=== PATIENT | male | born 1950 | race Caucasian/White ===

== ENCOUNTER → 2016-04-25 | Outpatient (CLI) | payer MEDICARE, OTHER | LOC: MW.CHGS 08:00 | PROVIDERS: ATTEND Surgery | DX: Z01.818 Encounter for other preprocedural examination (principal); K42.9 Umbilical hernia without obstruction or gangrene ==

== ENCOUNTER 2016-05-03 08:27 | Inpatient (IN) | payer MEDICARE, OTHER ==
[~2016-05-03 08:27] MED LIST: Lactated Ringers 1,000 ML IV SCH; Sodium Chloride 0.9% 10 ML Syringe FLUSH PRN; Sodium Chloride 0.9% 2.5 ML Syringe FLUSH PRN; ceFAZolin 2 GM in Premix Bag 1 BAG IV ONE
[2016-05-03] MEDS ORDERED: Propofol 200 MG/20 ML SDV ONE ×2 (09:52→13:41)
[2016-05-03] MEDS ORDERED: Rocuronium 10 MG/ML 10 ML Syringe ONE (09:52)
[2016-05-03] MEDS ORDERED: Lidocaine 2% 5 ML SDV ONE (09:52)
[2016-05-03] MEDS ORDERED: Midazolam 1 MG/ML 2 ML SDV ONE (09:53)
[2016-05-03] MEDS ORDERED: fentaNYL 100 MCG/2 ML SDV ONE ×2 (09:53→11:50)
[2016-05-03] MEDS ORDERED: Ondansetron 4 MG/2 ML SDV ONE (09:53)
--- NOTE | 2016-05-03 10:15 | PCM.PREANE ---
Preanesthetic Assessment - Anesthesia/Transfusion/Family Hx Anesthesia History: Prior Anesthesia Without Reaction Transfusion History: No Prior Transfusion(s) - Physical Assessment NPO Status Date: 05/02/16 NPO Status Time: 21:00 O2 Sat by Pulse Oximetry: 90 Respiratory Rate: 16 Vital Signs: Last Vital Signs Temp 36.2 C 05/03/16 09:59 Pulse 85 05/03/16 09:59 Resp 16 05/03/16 09:59 BP 158/75 H 05/03/16 09:59 Pulse Ox 90 L 05/03/16 09:59 Height: 1.75 m Weight: 102.058 kg - Allergies Allergies/Adverse Reactions: Allergies Allergy/AdvReac Type Severity Reaction Status Date / Time No Known Allergies Allergy Unverified 03/12/14 08:04 PreAnesthesia Questionnaire HEENT History: Reports: Other (see below) Other HEENT History: wears glasses Cardiovascular History: Reports: High cholesterol, Hypertension Respiratory History: Reports: COPD Other Respiratory History: uses oxygen as needed at bedtime, hard to climb stairs, can walk 2-3 blocks Gastrointestinal History: Reports: Other (see below) Other Gastrointestinal History: occasional heartburn Endocrine/Metabolic History: Reports: Obesity/BMI 30+ Hematologic History: Reports: Other (see below) Other Hematologic History: thrombo cytopenia - Past Surgical History Head Surgeries/Procedures: Reports: None HEENT Surgical History: Reports: Other (see below) Other HEENT Surgeries/Procedures: hx throat surgery (stripping of vocal cord lesions) GI Surgical History: Reports: Colonoscopy (2-3 months ago), Hernia, inguinal ( right inguinal hernia) - SUBSTANCE USE Smoking Status *Q: Former Smoker (quit '06) Tobacco Use Within Last Twelve Months: No Recreational Drug Use History: No - HOME MEDS Home Medications: Home Meds Albuterol Sulfate [Proair Hfa] 2 puff INH ASDIRECTED PRN 04/06/16 [History] Budesonide/Formoterol [Symbicort 160-4.5 MCG] 2 puff INH BID 04/06/16 [History] Lisinopril/Hydrochlorothiazide [Lisinopril-Hctz 20-25 mg Tab] 1 tab PO DAILY [History] Naproxen Sodium [Aleve] 1 tab PO TID PRN 04/06/16 [History] Tiotropium [Spiriva HandiHaler] 1 inhalation INH DAILY 04/06/16 [History] - CURRENT (IN HOUSE) MEDS Current Meds: Current Medications Lactated Ringer's (Ringers, Lactated) 1,000 mls @ 125 mls/hr IV ASDIRECTED PHAM Last Admin: 05/03/16 10:04 Dose: 125 mls/hr Lactated Ringer's (Ringers, Lactated) 1,000 mls @ 125 mls/hr IV ASDIRECTED PHAM Sodium Chloride (Saline Flush) 10 ml FLUSH ASDIRECTED PRN PRN Reason: Keep Vein Open Sodium Chloride (Saline Flush) 2.5 ml FLUSH ASDIRECTED PRN PRN Reason: Keep Vein Open Sodium Chloride (Saline Flush) 10 ml FLUSH ASDIRECTED PRN PRN Reason: Keep Vein Open Sodium Chloride (Saline Flush) 2.5 ml FLUSH ASDIRECTED PRN PRN Reason: Keep Vein Open Discontinued Medications Fentanyl (Sublimaze) Confirm Administered Dose 300 mcg .ROUTE .STK-MED ONE Stop: 05/03/16 09:54 Cefazolin Sodium/Dextrose 2 gm (/ Premix) 50 mls @ 100 mls/hr IV ONETIME ONE Stop: 04/17/16 12:19 Cefazolin Sodium/Dextrose 2 gm (/ Premix) 50 mls @ 100 mls/hr IV ONETIME ONE Stop: 05/02/16 11:21 Lidocaine (Xylocaine-Mpf 2%) Confirm Administered Dose 5 ml .ROUTE .STK-MED ONE Stop: 05/03/16 09:53 Midazolam HCl (Versed 1 Mg/Ml) Confirm Administered Dose 2 mg .ROUTE .STK-MED ONE Stop: 05/03/16 09:54 Ondansetron HCl (Zofran) Confirm Administered Dose 4 mg .ROUTE .STK-MED ONE Stop: 05/03/16 09:54 Propofol (Diprivan 20 Ml) Confirm Administered Dose 200 mg .ROUTE .STK-MED ONE Stop: 05/03/16 09:53 Rocuronium [place] (Zemuron) Confirm Administered Dose 100 mg .ROUTE .STK-MED ONE Stop: 05/03/16 09:53 Preanesthetic Assessment - ANESTHESIA/TRANSFUSION/FAMILY HX Anesthesia/Transfusion History: Prior Anesthesia Type of Anesthesia Reaction: Denies: Allergy, Anesthesia Awareness, Excessive Somnolence, Excessive Nausea/Vomiting, Excessive Itching, Excessive Shivering, Malignant Hyperthermia, Malignant Hyperthermia, Family History, Pseudocholinesterase Deficiency, Pseudocholinesterase Deficiency, Family History of, Urinary Retention, Unknown, Other (see below) Family History of Anesthesia Reaction: No Other Intubation History Comment: no known problems - REVIEW OF SYSTEMS Constitutional: Reports: no symptoms INSERT CUTTER: Reports: no symptoms Respiratory: Reports: no symptoms Cardiovascular: Reports: no symptoms GI: Reports: no symptoms Other: Reports: None - PHYSICAL ASSESSMENT O2 Sat by Pulse Oximetry: 90 RR: 16 Vital Signs: Last Vital Signs Temp 36.2 C 05/03/16 09:59 Pulse 85 05/03/16 09:59 Resp 16 05/03/16 09:59 BP 158/75 H 05/03/16 09:59 Pulse Ox 90 L 05/03/16 09:59 Height: 1.75 m Weight: 102.058 kg NPO Status Date: 05/02/16 NPO Status Time: 21:00 ASA Class: 3 Mental Status: Alert & Oriented x3 Airway Class: Mallampati = 2 Dentition: Reports: Normal Dentition (loose tooth bottom front (right)) Thyro-Mental Finger Breadths: 3 Mouth Opening Finger Breadths: 3 ROM/Head Extension: Full Respiratory Status: diminished breath sounds Cardiovascular Status: regular rate & rhythm, normal S1, S2, no murmur, blood pressure WNL - ALLERGIES Allergies/Adverse Reactions: Allergies Allergy/AdvReac Type Severity Reaction Status Date / Time No Known Allergies Allergy Unverified 03/12/14 08:04 - BLOOD Blood Available: No - ANESTHESIA PLAN Preop Beta Dillon: No Anesthesia Type Planned: General Anesthesia - ACKNOWLEDGEMENTS Pt an Appropriate Candidate for the Planned Anesthesia: Yes Alternatives and Risks of Anesthesia Discussed w Pt/Guardian: Yes Pt/Guardian Understands and Agrees with Anesthesia Plan: Yes
[2016-05-03] MEDS ORDERED: Bupivacaine 0.5% 10 ML SDV ONE (10:16)
[2016-05-03] MEDS ORDERED: ceFAZolin 1 GM Vial ONE ×2 (10:17→10:42)
[2016-05-03] MEDS ORDERED: Sodium Chloride 0.9% 20 ML ONE (10:42)
[2016-05-03] MEDS ORDERED: ePHEDrine 50 MG/ML SDV ONE (10:50)
[2016-05-03] MEDS ORDERED: Phenylephrine/Normal Saline 100 MCG/ML 10 ML Syringe ONE (10:53)
[2016-05-03] MEDS ORDERED: Succinylcholine/Normal Saline 200 MG/10 ML Syringe IV ONE (11:03)
[2016-05-03] MEDS ORDERED: Neostigmine Methylsulfate 1 MG/ML 5 ML Syringe IV ONE (11:57)
[2016-05-03] MEDS ORDERED: HYDROmorphone 2 MG/ML Syringe ONE (12:18)
--- NOTE | 2016-05-03 14:05 | PCM.OPNOTE ---
- General Post-Op/Procedure Note Date of Surgery/Procedure: 05/03/16 Operative Procedure(s): Umbilical hernia repair with mesh, ventral hernia repair with mesh, primary ventral hernia repair Findings: 5 x 5 cm umbilical hernia containing bowel and omentum, 2.5 cm ventral midline hernia containing bowel, 1 cm ventral hernia containing pre-peritoneal fat Pre Op Diagnosis: Umbilical hernia Post-Op Diagnosis: umbilical hernia, ventral hernia x 2 Anesthesia Technique: General ET tube Primary Surgeon: Lala Springer Pathology: hernia sac Fluid Replacement, Intraop: 2,900 Output, Urine Amount: 400 EBL in mLs: 100 Condition: Good
[2016-05-03] MEDS ORDERED: Metoprolol Tartrate 5 MG/5 ML SDV ONE (14:08)
[2016-05-03] MEDS ORDERED: diphenhydrAMINE 50 MG/ML SDV IVPUSH PRN (14:09)
[2016-05-03] MEDS ORDERED: Polyethylene Glycol 3350 Powder 17 GM Packet PO PRN (14:09)
[2016-05-03] MEDS ORDERED: Acetaminophen 325 MG Tab PO PRN (14:09)
[2016-05-03] MEDS ORDERED: HYDROmorphone/Normal Saline 6 MG/30 ML PCA Vial IV PRN (14:18)
[2016-05-03] MEDS ORDERED: Tiotropium Inhaler 18 MCG Inhalation Powder Cap Kit of 5 INH ONE (14:24)
[2016-05-03] MEDS ORDERED: Albuterol 0.083% 2.5 MG/3 ML Neb Soln NEB PRN (14:25)
[2016-05-03] MEDS ORDERED: fentaNYL 100 MCG/2 ML SDV IVPUSH PRN (14:40)
--- NOTE | 2016-05-03 15:05 | PCM.POSTAN ---
POST ANESTHESIA ASSESSMENT - MENTAL STATUS Mental Status: alert, oriented - RESPIRATORY Respiratory Status: respiratory rate WNL, airway patent, O2 saturation stable - CARDIOVASCULAR CV Status: pulse rate WNL, blood pressure stable - GASTROINTESTINAL GI Status: no symptoms - PAIN Pain Score: 0 - POST OP HYDRATION Hydration Status: adequate & stable
[2016-05-03 15:08] LABS: CHLORIDE,CL 107 mmol/L (98-110); SODIUM,NA 142 mmol/L (136-146)
[2016-05-03] MEDS: Lactated Ringers 1,000 ML IV SCH ×2 (15:41→23:25)
[2016-05-03] MEDS: HYDROmorphone/Normal Saline 6 MG/30 ML PCA Vial IV PRN (15:44)
--- NOTE | 2016-05-03 16:21 | PCM.SURGPN ---
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 Tired. Bloody drainage on lower part of dressings. ) - Review of Systems General: Reports: Other (dizzy) HEENT: Reports: no symptoms Pulmonary: Reports: no symptoms Cardiovascular: Reports: No Symptoms Gastrointestinal: Reports: Abdominal pain Musculoskeletal: Reports: no symptoms - Patient Data Vitals - most recent: Last Vital Signs Temp 36.6 C 05/03/16 14:12 Pulse 93 05/03/16 15:00 Resp 11 L 05/03/16 15:00 BP 147/86 H 05/03/16 15:00 Pulse Ox 92 L 05/03/16 15:00 Weight - most recent: 102.058 kg I&O - last 24 hours: Intake & Output 05/03/16 05/03/16 05/03/16 06:59 14:59 22:59 Intake Total 2900 3100 Output Total 800 650 Balance 2100 2450 Lab Results last 24 hrs: Laboratory Results - last 24 hr 05/03/16 05/03/16 Range/Units 14:36 14:36 WBC 13.79 H (4.0-11.0) K/uL RBC 4.56 (4.50-5.90) M/uL Hgb 14.1 (13.0-17.0) g/dL Hct 43.8 (38.0-50.0) % MCV 96.1 (80.0-98.0) fL MCH 30.9 (27.0-32.0) pg MCHC 32.2 (31.0-37.0) g/dL RDW Std Deviation 50.3 (28.0-62.0) fl RDW Coeff of [place] 14 (11.0-15.0) % Plt Count 186 (150-400) K/uL MPV 11.80 (7.40-12.00) fL Neut % (Auto) 86.4 H (48.0-80.0) % Lymph % (Auto) 6.3 L (16.0-40.0) % [place] % (Auto) 6.1 (0.0-15.0) % Eos % (Auto) 1.0 (0.0-7.0) % Baso % (Auto) 0.2 (0.0-1.5) % Neut # 11.9 H (1.4-5.7) K/uL Lymph # 0.9 (0.6-2.4) K/uL [place] # 0.8 (0.0-0.8) K/uL Eos # 0.1 (0.0-0.7) K/uL Baso # 0.0 (0.0-0.1) K/uL Nucleated RBC % 0.0 /100WBC Nucleated RBCs # 0 K/uL Sodium 142 (136-146) mmol/L Potassium 4.3 (3.5-5.1) mmol/L Chloride 107 (98-110) mmol/L Carbon Dioxide 28 (21-31) mmol/L BUN 14 (6.0-23.0) mg/dL Creatinine 1.2 (0.6-1.5) mg/dL Est Cr Clr Drug Dosing 60.55 mL/min Estimated GFR (MDRD) > 60.0 ml/min Glucose 130 H (60-110) mg/dL Calcium 8.5 L (8.8-10.8) mg/dL Med Orders - Current: Current Medications Acetaminophen (Tylenol) 650 mg PO Q6H PRN PRN Reason: Pain (mild 1-3) Albuterol (Proventil Neb Soln) 2.5 mg NEB Q4HRRT PRN PRN Reason: Shortness of Breath Budesonide (Pulmicort) 0.5 mg NEB BIDRT PHAM Cyclobenzaprine HCl (Flexeril) 5 mg PO TID PHAM Diphenhydramine HCl (Benadryl) 25 mg IVPUSH Q4H PRN PRN Reason: Itching Fentanyl (Sublimaze) 50 mcg IVPUSH Q5M PRN PRN Reason: Pain (severe 7-10) Stop: 05/04/16 14:40 Hydromorphone HCl (Dilaudid Truck Service Manager 6 Mg In Ns 30 Ml) 6 mg IV ASDIRECTED PRN; Protocol PRN Reason: Abdominal Pain Last Admin: 05/03/16 15:44 Dose: 6 mg Lactated Ringer's (Ringers, Lactated) 1,000 mls @ 125 mls/hr IV ASDIRECTED PHAM Last Admin: 05/03/16 15:41 Dose: 125 mls/hr Ondansetron HCl (Zofran) 4 mg IVPUSH Q6H PRN PRN Reason: Nausea/Vomiting Polyethylene Glycol (Miralax) 17 gm PO DAILY PRN PRN Reason: Constipation Sodium Chloride (Saline Flush) 10 ml FLUSH ASDIRECTED PRN PRN Reason: Keep Vein Open Sodium Chloride (Saline Flush) 2.5 ml FLUSH ASDIRECTED PRN PRN Reason: Keep Vein Open Sodium Chloride (Saline Flush) 10 ml FLUSH ASDIRECTED PRN PRN Reason: Keep Vein Open Sodium Chloride (Saline Flush) 2.5 ml FLUSH ASDIRECTED PRN PRN Reason: Keep Vein Open Discontinued Medications Bupivacaine HCl (Sensorcaine-Mpf 0.5%) Confirm Administered Dose 30 ml .ROUTE .STK-MED ONE Stop: 05/03/16 10:17 Cefazolin Sodium (Ancef) Confirm Administered Dose 1 gm .ROUTE .STK-MED ONE Stop: 05/03/16 10:18 Cefazolin Sodium (Ancef) Confirm Administered Dose 2 gm .ROUTE .STK-MED ONE Stop: 05/03/16 10:43 Ephedrine Sulfate (Ephedrine Sulfate) Confirm Administered Dose 50 mg .ROUTE .STK-MED ONE Stop: 05/03/16 10:51 Fentanyl (Sublimaze) Confirm Administered Dose 300 mcg .ROUTE .STK-MED ONE Stop: 05/03/16 09:54 Fentanyl (Sublimaze) Confirm Administered Dose 100 mcg .ROUTE .STK-MED ONE Stop: 05/03/16 11:51 Hydromorphone HCl (Dilaudid) Confirm Administered Dose 2 mg .ROUTE .STK-MED ONE Stop: 05/03/16 12:19 Hydromorphone HCl (Dilaudid Truck Service Manager 6 Mg In Ns 30 Ml) 6 mg IV ASDIRECTED PRN; Protocol PRN Reason: Abdominal Pain Lactated Ringer's (Ringers, Lactated) 1,000 mls @ 125 mls/hr IV ASDIRECTED PHAM Last Admin: 05/03/16 10:04 Dose: 125 mls/hr Cefazolin Sodium/Dextrose 2 gm (/ Premix) 50 mls @ 100 mls/hr IV ONETIME ONE Stop: 04/17/16 12:19 Cefazolin Sodium/Dextrose 2 gm (/ Premix) 50 mls @ 100 mls/hr IV ONETIME ONE Stop: 05/02/16 11:21 Last Admin: 05/03/16 15:28 Dose: Not Given Lactated Ringer's (Ringers, Lactated) 1,000 mls @ 125 mls/hr IV ASDIRECTED PHAM Sodium Chloride (Normal Saline) Confirm Administered Dose 20 mls @ as directed .ROUTE .STK-MED ONE Stop: 05/03/16 10:43 Lidocaine (Xylocaine-Mpf 2%) Confirm Administered Dose 5 ml .ROUTE .STK-MED ONE Stop: 05/03/16 09:53 Metoprolol Tartrate (Lopressor) Confirm Administered Dose 5 mg .ROUTE .STK-MED ONE Stop: 05/03/16 14:09 Midazolam HCl (Versed 1 Mg/Ml) Confirm Administered Dose 2 mg .ROUTE .STK-MED ONE Stop: 05/03/16 09:54 Ondansetron HCl (Zofran) Confirm Administered Dose 4 mg .ROUTE .STK-MED ONE Stop: 05/03/16 09:54 Phenylephrine HCl (Phenylephrine In Ns 100 Mcg/Ml) Confirm Administered Dose 1 mg .ROUTE .STK-MED ONE Stop: 05/03/16 10:54 Propofol (Diprivan 20 Ml) Confirm Administered Dose 200 mg .ROUTE .STK-MED ONE Stop: 05/03/16 09:53 Propofol (Diprivan 20 Ml) Confirm Administered Dose 200 mg .ROUTE .STK-MED ONE Stop: 05/03/16 13:42 Rocuronium [place] (Zemuron) Confirm Administered Dose 100 mg .ROUTE .STK-MED ONE Stop: 05/03/16 09:53 Tiotropium [place] (Spiriva Handihaler) 18 mcg INH ONETIME ONE Stop: 05/03/16 14:25 Last Admin: 05/03/16 15:53 Dose: 1 cap - Exam Wound/Incisions: drainage (bloody draiange at lower aspect of incision ) Quality Assessment: supplemental oxygen General: alert, oriented, cooperative, no acute distress Lungs: Normal respiratory effort Cardiovascular: Regular Rate Abdomen: soft, other (Abdomen tender along midline incision, soft, patient has distended round belly pre-operatively. Slightly more distended from that. ) - Problem List Review Problem List Initiated/Reviewed/Updated: Yes - My Orders Last 24 Hours: Active Orders 24 hr Category Date Time Status Patient Status [ADT] Routine ADT 05/03/16 14:20 Active Antiembolic Devices [RC] .Routine Care 05/03/16 14:13 Active Bradycardia-Neuroaxis [employer] [RC] ROUTINE Care 05/03/16 14:40 Active CPAP Adult [RT BiPAP/CPAP] [RC] ASDIRECTED Care 05/03/16 14:17 Active Cardiac Monitoring [RC] . DIRECTED Care 05/03/16 14:09 Active Communication Order [RC] ROUTINE Care 05/03/16 15:45 Active Hypertension-Neuroaxis [employer] [RC] ROUTINE Care 05/03/16 14:40 Active Hypotension-Neuroaxis [employer] [RC] ROUTINE Care 05/03/16 14:40 Active Intake and Output [RC] Q4HR Care 05/03/16 14:11 Active Notify Provider Vital Signs [RC] PRN Care 05/03/16 14:11 Active Oxygen Therapy [RC] PRN Care 05/03/16 14:09 Active Pulse Oximetry [RC] CONTINUOUS Care 05/03/16 14:11 Active RT Aerosol Therapy [RC] ASDIRECTED Care 05/03/16 14:25 Active RT Incentive Spirometry [RC] ASDIRECTED Care 05/03/16 14:09 Active RT Post Treatment Assessment [RC] Click To Edit Care 05/03/16 14:24 Active RT Pre-Treatment Assessment [RC] Click To Edit Care 05/03/16 14:24 Active Up ad Maura [RC] ASDIRECTED Care 05/03/16 14:09 Active Up to Chair [RC] BID Care 05/03/16 14:10 Active VTE/DVT Education [RC] PER UNIT ROUTINE Care 05/03/16 14:13 Active Vital Signs [RC] PER UNIT ROUTINE Care 05/03/16 14:09 Active PT Evaluation and Treatment [CONS] Routine Cons 05/03/16 14:09 Active Respiratory Care Assess and Treatment [CONS] Routine Cons 05/03/16 14:09 Active Nothing Per Oral Diet [DIET] Diet 05/03/16 Dinner Active BASIC METABOLIC PANEL,BMP [CHEM] AM Lab 05/04/16 05:11 Ordered CBC WITH AUTO DIFF [HEME] AM Lab 05/04/16 05:11 Ordered Acetaminophen [Tylenol] Med 05/03/16 14:09 Active 650 mg PO Q6H PRN Albuterol [Proventil Neb Soln] Med 05/03/16 14:25 Active 2.5 mg NEB Q4HRRT PRN Budesonide [Pulmicort] Med 05/03/16 21:00 Active 0.5 mg NEB BIDRT Cyclobenzaprine [Flexeril] Med 05/03/16 22:00 Active 5 mg PO TID HYDROmorphone/Normal Saline [Dilaudid RAIL TRACK LAYER 6 MG in NS 30 Med 05/03/16 15:27 Active ML] 6 mg IV ASDIRECTED PRN Lactated Ringers [Ringers, Lactated] 1,000 ml Med 05/03/16 14:15 Active IV ASDIRECTED Ondansetron [Zofran] Med 05/03/16 14:09 Active 4 mg IVPUSH Q6H PRN Polyethylene Glycol 3350 [MiraLAX] Med 05/03/16 14:09 Active 17 gm PO DAILY PRN diphenhydrAMINE [Benadryl] Med 05/03/16 14:09 Active 25 mg IVPUSH Q4H PRN fentaNYL [Sublimaze] Med 05/03/16 14:40 Active 50 mcg IVPUSH Q5M PRN Abdominal Binder [OM.PC] Per Unit Routine Oth 05/03/16 14:11 Ordered DVT/VTE Prophylaxis Reflex [OM.PC] Routine Oth 05/03/16 14:09 Ordered Medication Orders Acetaminophen (Tylenol) 650 mg PO Q6H PRN PRN Reason: Pain (mild 1-3) Albuterol (Proventil Neb Soln) 2.5 mg NEB Q4HRRT PRN PRN Reason: Shortness of Breath Budesonide (Pulmicort) 0.5 mg NEB BIDRT PHAM Cyclobenzaprine HCl (Flexeril) 5 mg PO TID PHAM Diphenhydramine HCl (Benadryl) 25 mg IVPUSH Q4H PRN PRN Reason: Itching Fentanyl (Sublimaze) 50 mcg IVPUSH Q5M PRN PRN Reason: Pain (severe 7-10) Stop: 05/04/16 14:40 Hydromorphone HCl (Dilaudid Truck Service Manager 6 Mg In Ns 30 Ml) 6 mg IV ASDIRECTED PRN; Protocol PRN Reason: Abdominal Pain Last Admin: 05/03/16 15:44 Dose: 6 mg Lactated Ringer's (Ringers, Lactated) 1,000 mls @ 125 mls/hr IV ASDIRECTED PHAM Last Admin: 05/03/16 15:41 Dose: 125 mls/hr Ondansetron HCl (Zofran) 4 mg IVPUSH Q6H PRN PRN Reason: Nausea/Vomiting Polyethylene Glycol (Miralax) 17 gm PO DAILY PRN PRN Reason: Constipation Sodium Chloride (Saline Flush) 10 ml FLUSH ASDIRECTED PRN PRN Reason: Keep Vein Open Sodium Chloride (Saline Flush) 2.5 ml FLUSH ASDIRECTED PRN PRN Reason: Keep Vein Open Sodium Chloride (Saline Flush) 10 ml FLUSH ASDIRECTED PRN PRN Reason: Keep Vein Open Sodium Chloride (Saline Flush) 2.5 ml FLUSH ASDIRECTED PRN PRN Reason: Keep Vein Open - Assessment Assessment (Free Text/Narrative):: Umbilical and ventral hernia repairs. - Plan Plan (Free Text/Narrative):: Patient with large skin and subcutaneous flaps during procedure. Not surprised that patient having drainage that soaks lower incision. Will monitor overnight. Hgb stable. Vitals stable. Will check labs in am. Pain: IV dilaudid RAIL TRACK LAYER Cardiac: On radiation monitor and stable. Pulmonary: Patient denies having CPAP at home. Will D/C. Home meds ordered. Diet: Npo expect ice chips Renal: BUN/Cr stable. Continue to monitor. UOP adequate Infection: No antibiotics. Afebrile Heme: Recheck Hgb in am. Plts and H/H stable.
--- NOTE | 2016-05-03 20:01 | PCM.SN ---
- Free Text/Narrative Note: Called to bedside due to increased abdominal distension and midline dressings being saturated. Patient having more abdominal tenderness. Vitals have been stable. Patient alert, awake and oriented. More tender with abdominal palpation. UOP slightly down over last hour. Midline dressings saturated with serosanguinous fluid. Will order stat CBC, BMP, and abdominal/pelvis CT.
[2016-05-03 20:40] LABS: CHLORIDE,CL 107 mmol/L (98-110); SODIUM,NA 142 mmol/L (136-146)
--- NOTE | 2016-05-03 21:12 | PCM.SN ---
- Free Text/Narrative Note: Patients labs are overall stable. H/H is stable. Plts are slightly down but still within normal limits and >100K. WBC relatively stable with only a small bump. I reviewed the patients abdominal CT and I do not see a large amount of free air or fluid collection within the abdomen. There is fluid and air anterior to the abdominal fascia with a very small amount of free air under the mesh as I would expect 6 hours after surgery. He had large skin flaps bilaterally along his midline during surgery which were brought together at the end of the case which would explain the air and fluids. His incision was NOT erythematous, warm, and only draining serosanguinous fluid which has improved. I will visit with the reading radiologist and follow up on his final read. As long as the patients vitals remain stable, his labs are unchanged, I believe this to be normal post operative pain and swelling. I will monitor the patient carefully and take into consideration the final CT readings.
[2016-05-03] MEDS: Piperacillin/Tazobactam 3.375 GM in Sodium Chloride 0.9% 50 ML IV SCH (21:28)
[2016-05-03] MEDS: Cyclobenzaprine 5 MG Tab PO SCH (21:28)
[2016-05-03] MEDS: Budesonide 0.5 MG/2 ML Neb Susp NEB SCH (21:29)
--- NOTE | 2016-05-03 22:25 | OR ---
SURGEON: TULIO MONTANEZ MD DATE OF PROCEDURE: 05/03/2016 PREOPERATIVE DIAGNOSIS: Umbilical hernia. POSTOPERATIVE DIAGNOSES: Umbilical hernia, ventral hernia x2. PROCEDURE PERFORMED: Open umbilical hernia repair with mesh, open ventral hernia repair with mesh, primary closure of ventral hernia. FLUIDS: 2900 mL crystalloid. ESTIMATED BLOOD LOSS: 100 mL. URINE OUTPUT: 400 mL. COMPLICATIONS: None. FINDINGS: 5 cm diameter umbilical hernia, 2.5 cm upper midline ventral hernia, 1 cm upper midline ventral hernia. INDICATIONS: The patient is a 65-year-old male, who presents to clinic with a large umbilical hernia. It has been present for years and is becoming more tender. The skin around the hernia sac was thinned out and concerning. The decision was made to perform an umbilical hernia repair with mesh. The patient and I discussed the procedure as well as expected perioperative course. The patient underwent preoperative clearance prior to us going to the operating room. We discussed the risks including bleeding, infection, or damage to surrounding structures. The patient verbalized understanding and wished to proceed. PROCEDURE IN DETAIL: The patient was brought into the operating room and placed on the operating room table in supine position. A time-out was completed verifying the patient's name, age, date of , allergies, and procedure to be performed. General endotracheal anesthesia was induced. The abdomen was prepped and draped in the usual standard fashion. A midline incision was made using a 15 blade. Cautery was used to dissect down to the subcutaneous fat and to the level of the fascia along the supraumbilical portion of the incision. I then used blunt dissection to get to the level of the intact fascia and worked my way down to the level of the hernia sac. Using Metzenbaum scissors, I dissected out the patient's hernia sac around what used to be the umbilicus. Skin flaps were created bilaterally. Once the hernia sac was completely dissected free from the overlying skin and subcutaneous tissues, I entered the sac. The sac contained omentum and some small bowel. This, however, was not scarred to the inside of the hernia sac. I then dissected the hernia sac off the overlying fascia and sent to pathology labeled as hernia sac. The midline defect was measured and measured approximately 5 cm in diameter. 11 cm piece of ventral mesh was brought into the field. This appeared to have good overlap over the patient's fascial edges. While sweeping underneath the abdomen, I noted that a piece of bowel was sticking through a secondary fascial defect superiorly. I then turned my attention to this hernia. Using cautery, I extended my skin incision superiorly. I then used blunt and sharp dissection to dissect out another hernia defect that was 6 cm cephalad from my umbilical hernia defect. The hernia sac contents were able to be reduced into the abdomen and I swept away any adhesions along the hernia sac from the inside. Once the hernia sac was then free, I measured the secondary hernia defect. This measured approximately 2.5 cm in diameter. The decision was made to leave the hernia sac in place and instead placed a subfascial 4.3 cm Ventralex hernia patch over this defect. I first turned my attention to placing the umbilical hernia defect mesh. This was secured under the fascia using interrupted 0 Ethibond sutures in a radial fashion. These were then tied down and a good underlay of the mesh was ensured. There was no wrinkling or buckling of the mesh patch. I then took a 4.3 cm Ventralex hernia patch and place it in the secondary hernia defect. I secured this radially around the fascial edges using Ethibond sutures. I was getting ready to close the abdomen when I noticed another small hernia superior to the secondary defect. This measured approximately 1 cm in diameter and contained only preperitoneal fat. The preperitoneal fat was reduced back into the abdomen and the decision was made to repair this primarily. Using 0 Ethibond sutures in a [id number] fashion, I closed the fascia in a horizontal manner. I then irrigated the wound with normal saline. The fascia overlying the two other defects was then closed in a horizontal manner over the top of the mesh using 0 Ethibond sutures. I then closed the subcutaneous fat over the top of my midline incision using interrupted 3-0 Vicryl's. I trimmed the umbilical hernia skin to allow more cosmetic closure. The skin overlying the umbilicus was then tacked down using interrupted 3-0 Vicryl's. The subcutaneous skin was then closed with interrupted 3-0 Vicryl as well. I then closed the skin of my midline incision with a running 4-0 Monocryl suture. Prior to closure, I had anesthetized the fascia with 0.5% Marcaine plain. Prior to closure, also hemostasis was achieved using electrocautery. Steri-Strips and sterile dressings were applied. The patient tolerated the procedure well and was extubated. No complications were acutely noted. All counts were complete and correct at the end of the case. ROSALBA SELF /[id number]
[2016-05-03] MEDS: Ondansetron 4 MG/2 ML SDV IVPUSH PRN (23:27)
[2016-05-04] MEDS ORDERED: Ondansetron 4 MG/2 ML SDV IVPUSH ONE (02:01)
[2016-05-04] MEDS: hydrALAZINE 20 MG/ML SDV IVPUSH PRN (02:22)
[2016-05-04] MEDS: Piperacillin/Tazobactam 3.375 GM in Sodium Chloride 0.9% 50 ML IV SCH ×3 (04:37→20:45)
[2016-05-04] MEDS: Ondansetron 4 MG/2 ML SDV IVPUSH PRN (05:20)
[2016-05-04] MEDS: Cyclobenzaprine 5 MG Tab PO SCH (05:25)
[2016-05-04 06:31] LABS: CHLORIDE,CL 106 mmol/L (98-110); SODIUM,NA 145 mmol/L (136-146)
[2016-05-04] MEDS: Budesonide 0.5 MG/2 ML Neb Susp NEB SCH ×2 (07:10→20:39)
--- NOTE | 2016-05-04 07:11 | PCM.SURGPN ---
- General Info Date of Service: 05/04/16 Date of Surgery/Procedure: 05/03/16 POD#: 1 Post-Op Diagnosis: Umbilical hernia, ventral hernia x 2 Functional Status: Reports: other (Patient had abdominal pain post-operatively that got worse overnight. CT abdomen/pelvis showed no acute findings and CBC/ BMP stable. Overnight patient had intractable vomiting. NG placed with large amount of bilious output. Hypertensive and recieved one dose of hydralazine. ) - Review of Systems General: Reports: No Symptoms HEENT: Reports: no symptoms Pulmonary: Reports: no symptoms Cardiovascular: Reports: No Symptoms Gastrointestinal: Reports: Abdominal pain, Decreased appetite, Nausea, Vomiting Genitourinary: Reports: no symptoms Skin: Reports: no symptoms - Patient Data Vitals - most recent: Last Vital Signs Temp 37.2 C 05/04/16 05:32 Pulse 92 05/04/16 05:32 Resp 14 05/04/16 05:32 BP 127/61 05/04/16 05:32 Pulse Ox 92 L 05/04/16 05:32 Weight - most recent: 101 kg I&O - last 24 hours: Intake & Output 05/03/16 05/04/16 05/04/16 22:59 06:59 14:59 Intake Total 3100 1340 Output Total 800 1120 Balance 2300 220 Lab Results last 24 hrs: Laboratory Results - last 24 hr 05/03/16 05/03/16 05/03/16 Range/Units 14:36 14:36 20:10 WBC 13.79 H 14.27 H (4.0-11.0) K/uL RBC 4.56 4.47 L (4.50-5.90) M/uL Hgb 14.1 13.9 (13.0-17.0) g/dL Hct 43.8 42.5 (38.0-50.0) % MCV 96.1 95.1 (80.0-98.0) fL MCH 30.9 31.1 (27.0-32.0) pg MCHC 32.2 32.7 (31.0-37.0) g/dL RDW Std Deviation 50.3 50.1 (28.0-62.0) fl RDW Coeff of Kennedy 14 14 (11.0-15.0) % Plt Count 186 128 L (150-400) K/uL MPV 11.80 11.40 (7.40-12.00) fL Neut % (Auto) 86.4 H 84.8 H (48.0-80.0) % Lymph % (Auto) 6.3 L 6.2 L (16.0-40.0) % Peach % (Auto) 6.1 8.6 (0.0-15.0) % Eos % (Auto) 1.0 0.2 (0.0-7.0) % Baso % (Auto) 0.2 0.2 (0.0-1.5) % Neut # 11.9 H 12.1 H (1.4-5.7) K/uL Lymph # 0.9 0.9 (0.6-2.4) K/uL Peach # 0.8 1.2 H (0.0-0.8) K/uL Eos # 0.1 0.0 (0.0-0.7) K/uL Baso # 0.0 0.0 (0.0-0.1) K/uL Nucleated RBC % 0.0 0.0 /100WBC Nucleated RBCs # 0 0 K/uL Sodium 142 (136-146) mmol/L Potassium 4.3 (3.5-5.1) mmol/L Chloride 107 (98-110) mmol/L Carbon Dioxide 28 (21-31) mmol/L BUN 14 (6.0-23.0) mg/dL Creatinine 1.2 (0.6-1.5) mg/dL Est Cr Clr Drug Dosing 60.55 mL/min Estimated GFR (MDRD) > 60.0 ml/min Glucose 130 H (60-110) mg/dL Calcium 8.5 L (8.8-10.8) mg/dL 05/03/16 05/04/16 05/04/16 Range/Units 20:10 05:53 05:53 WBC 12.28 H (4.0-11.0) K/uL RBC 4.43 L (4.50-5.90) M/uL Hgb 13.9 (13.0-17.0) g/dL Hct 42.8 (38.0-50.0) % MCV 96.6 (80.0-98.0) fL MCH 31.4 (27.0-32.0) pg MCHC 32.5 (31.0-37.0) g/dL RDW Std Deviation 51.6 (28.0-62.0) fl RDW Coeff of Kennedy 15 (11.0-15.0) % Plt Count 180 (150-400) K/uL MPV 11.80 (7.40-12.00) fL Neut % (Auto) 91.7 H (48.0-80.0) % Lymph % (Auto) 2.1 L (16.0-40.0) % Peach % (Auto) 6.1 (0.0-15.0) % Eos % (Auto) 0.0 (0.0-7.0) % Baso % (Auto) 0.1 (0.0-1.5) % Neut # 11.3 H (1.4-5.7) K/uL Lymph # 0.3 L (0.6-2.4) K/uL Peach # 0.8 (0.0-0.8) K/uL Eos # 0.0 (0.0-0.7) K/uL Baso # 0.0 (0.0-0.1) K/uL Nucleated RBC % 0.0 /100WBC Nucleated RBCs # 0 K/uL Sodium 142 145 (136-146) mmol/L Potassium 4.3 4.0 (3.5-5.1) mmol/L Chloride 107 106 (98-110) mmol/L Carbon Dioxide 28 29 (21-31) mmol/L BUN 13 12 (6.0-23.0) mg/dL Creatinine 0.9 0.9 (0.6-1.5) mg/dL Est Cr Clr Drug Dosing 83.36 83.36 mL/min Estimated GFR (MDRD) > 60.0 > 60.0 ml/min Glucose 112 H 170 H (60-110) mg/dL Calcium 8.1 L 8.5 L (8.8-10.8) mg/dL Med Orders - Current: Current Medications Acetaminophen (Tylenol) 650 mg PO Q6H PRN PRN Reason: Pain (mild 1-3) Last Admin: 05/03/16 23:27 Dose: 650 mg Albuterol (Proventil Neb Soln) 2.5 mg NEB Q4HRRT PRN PRN Reason: Shortness of Breath Last Admin: 05/03/16 19:52 Dose: 2.5 mg Budesonide (Pulmicort) 0.5 mg NEB BIDRT [facility] Last Admin: 05/03/16 21:29 Dose: 0.5 mg Cyclobenzaprine HCl (Flexeril) 5 mg PO TID [facility] Last Admin: 05/04/16 05:25 Dose: 5 mg Diphenhydramine HCl (Benadryl) 25 mg IVPUSH Q4H PRN PRN Reason: Itching Last Admin: 05/03/16 23:27 Dose: 25 mg Fentanyl (Sublimaze) 50 mcg IVPUSH Q5M PRN PRN Reason: Pain (severe 7-10) Stop: 05/04/16 14:40 Hydralazine HCl (Apresoline) 10 mg IVPUSH Q1H PRN PRN Reason: Hypertension Last Admin: 05/04/16 02:22 Dose: 10 mg Hydromorphone HCl (Dilaudid Cruise Coordinator 6 Mg In Ns 30 Ml) 6 mg IV ASDIRECTED PRN; Protocol PRN Reason: Abdominal Pain Last Admin: 05/03/16 15:44 Dose: 6 mg Lactated Ringer's (Ringers, Lactated) 1,000 mls @ 125 mls/hr IV ASDIRECTED [facility] Last Admin: 05/03/16 23:25 Dose: 125 mls/hr Piperacillin Sod/Tazobactam (Sod 3.375 gm/ Sodium Chloride) 50 mls @ 100 mls/ hr IV Q8H [facility] Last Admin: 05/04/16 04:37 Dose: 100 mls/hr Pantoprazole Sodium 40 mg/ (Sodium Chloride) 10 mls @ 300 mls/hr IVPUSH DAILY [facility] Ondansetron HCl (Zofran) 4 mg IVPUSH Q6H PRN PRN Reason: Nausea/Vomiting Last Admin: 05/04/16 05:20 Dose: 4 mg Polyethylene Glycol (Miralax) 17 gm PO DAILY PRN PRN Reason: Constipation Sodium Chloride (Saline Flush) 10 ml FLUSH ASDIRECTED PRN PRN Reason: Keep Vein Open Sodium Chloride (Saline Flush) 2.5 ml FLUSH ASDIRECTED PRN PRN Reason: Keep Vein Open Sodium Chloride (Saline Flush) 10 ml FLUSH ASDIRECTED PRN PRN Reason: Keep Vein Open Sodium Chloride (Saline Flush) 2.5 ml FLUSH ASDIRECTED PRN PRN Reason: Keep Vein Open Discontinued Medications Bupivacaine HCl (Sensorcaine-Mpf 0.5%) Confirm Administered Dose 30 ml .ROUTE .STK-MED ONE Stop: 05/03/16 10:17 Cefazolin Sodium (Ancef) Confirm Administered Dose 1 gm .ROUTE .STK-MED ONE Stop: 05/03/16 10:18 Cefazolin Sodium (Ancef) Confirm Administered Dose 2 gm .ROUTE .STK-MED ONE Stop: 05/03/16 10:43 Ephedrine Sulfate (Ephedrine Sulfate) Confirm Administered Dose 50 mg .ROUTE .STK-MED ONE Stop: 05/03/16 10:51 Fentanyl (Sublimaze) Confirm Administered Dose 300 mcg .ROUTE .STK-MED ONE Stop: 05/03/16 09:54 Fentanyl (Sublimaze) Confirm Administered Dose 100 mcg .ROUTE .STK-MED ONE Stop: 05/03/16 11:51 Glycopyrrolate () 1 mg IVPUSH .STK-MED ONE Stop: 05/03/16 10:48 Hydromorphone HCl (Dilaudid) Confirm Administered Dose 2 mg .ROUTE .STK-MED ONE Stop: 05/03/16 12:19 Hydromorphone HCl (Dilaudid Cruise Coordinator 6 Mg In Ns 30 Ml) 6 mg IV ASDIRECTED PRN; Protocol PRN Reason: Abdominal Pain Lactated Ringer's (Ringers, Lactated) 1,000 mls @ 125 mls/hr IV ASDIRECTED [facility] Last Admin: 05/03/16 10:04 Dose: 125 mls/hr Cefazolin Sodium/Dextrose 2 gm (/ Premix) 50 mls @ 100 mls/hr IV ONETIME ONE Stop: 04/17/16 12:19 Cefazolin Sodium/Dextrose 2 gm (/ Premix) 50 mls @ 100 mls/hr IV ONETIME ONE Stop: 05/02/16 11:21 Last Admin: 05/03/16 15:28 Dose: Not Given Lactated Ringer's (Ringers, Lactated) 1,000 mls @ 125 mls/hr IV ASDIRECTED [facility] Sodium Chloride (Normal Saline) Confirm Administered Dose 20 mls @ as directed .ROUTE .STK-MED ONE Stop: 05/03/16 10:43 Lidocaine (Xylocaine-Mpf 2%) Confirm Administered Dose 5 ml .ROUTE .STK-MED ONE Stop: 05/03/16 09:53 Metoprolol Tartrate (Lopressor) Confirm Administered Dose 5 mg .ROUTE .STK-MED ONE Stop: 05/03/16 14:09 Midazolam HCl (Versed 1 Mg/Ml) Confirm Administered Dose 2 mg .ROUTE .STK-MED ONE Stop: 05/03/16 09:54 Neostigmine Methylsulfate (Neostigmine) 5 mg IV .STK-MED ONE Stop: 05/03/16 11:58 Ondansetron HCl (Zofran) Confirm Administered Dose 4 mg .ROUTE .STK-MED ONE Stop: 05/03/16 09:54 Ondansetron HCl (Zofran) 4 mg IVPUSH ONETIME ONE Stop: 05/04/16 02:02 Last Admin: 05/04/16 02:22 Dose: 4 mg Phenylephrine HCl (Phenylephrine In Ns 100 Mcg/Ml) Confirm Administered Dose 1 mg .ROUTE .STK-MED ONE Stop: 05/03/16 10:54 Propofol (Diprivan 20 Ml) Confirm Administered Dose 200 mg .ROUTE .STK-MED ONE Stop: 05/03/16 09:53 Propofol (Diprivan 20 Ml) Confirm Administered Dose 200 mg .ROUTE .STK-MED ONE Stop: 05/03/16 13:42 Rocuronium Sutton (Zemuron) Confirm Administered Dose 100 mg .ROUTE .STK-MED ONE Stop: 05/03/16 09:53 Succinylcholine Chloride (Succinylcholine In Ns Pf) 200 mg IV .STK-MED ONE Stop: 05/03/16 11:04 Tiotropium Sutton (Spiriva Handihaler) 18 mcg INH ONETIME ONE Stop: 05/03/16 14:25 Last Admin: 05/03/16 15:53 Dose: 1 cap - Exam Wound/Incisions: dressing dry and intact Quality Assessment: supplemental oxygen, urine catheter General: alert, oriented, cooperative, no acute distress HEENT: Pupils equal, Pupils reactive Lungs: Clear to auscultation, Normal respiratory effort Cardiovascular: Regular Rate, Regular Rhythm Abdomen: bowel sounds present, soft, no distension, tenderness (mild along incision, but greatly improved from last evening) Skin: warm, dry, intact Neurological: no new focal deficit Psy/Mental Status: alert, normal affect, normal mood - Problem List & Annotations (1) Umbilical hernia SNOMED Code(s): 875014801, 248081261 Code(s): K42.9 - UMBILICAL HERNIA WITHOUT OBSTRUCTION OR GANGRENE Status: Acute Current Visit: Yes (2) Ventral hernia SNOMED Code(s): 684943593 Code(s): K43.9 - VENTRAL HERNIA WITHOUT OBSTRUCTION OR GANGRENE Status: Acute Current Visit: Yes (3) Postoperative ileus SNOMED Code(s): 823343660 Code(s): K91.3 - POSTPROCEDURAL INTESTINAL OBSTRUCTION Status: Acute Current Visit: Yes - Problem List Review Problem List Initiated/Reviewed/Updated: Yes - My Orders Last 24 Hours: Active Orders 24 hr Category Date Time Status Patient Status [ADT] Routine ADT 05/03/16 14:20 Active Antiembolic Devices [RC] Q12H Care 05/03/16 14:13 Active Bradycardia-Neuroaxis [employer] [RC] ROUTINE Care 05/03/16 14:40 Active CPAP Adult [RT BiPAP/CPAP] [RC] ASDIRECTED Care 05/03/16 14:17 Inactive Cardiac Monitoring [RC] Q8H Care 05/03/16 14:09 Active Communication Order [RC] ROUTINE Care 05/03/16 15:45 Active Communication Order [RC] ROUTINE Care 05/04/16 02:05 Active Hypertension-Neuroaxis [employer] [RC] ROUTINE Care 05/03/16 14:40 Active Hypotension-Neuroaxis [employer] [RC] ROUTINE Care 05/03/16 14:40 Active Intake and Output [RC] Q4HR Care 05/03/16 14:11 Active Notify Provider Vital Signs [RC] PRN Care 05/03/16 14:11 Active Oxygen Therapy [RC] PRN Care 05/03/16 14:09 Active Pulse Oximetry [RC] CONTINUOUS Care 05/03/16 14:11 Active RT Aerosol Therapy [RC] ASDIRECTED Care 05/03/16 14:25 Active RT Incentive Spirometry [RC] ASDIRECTED Care 05/03/16 14:09 Active RT Post Treatment Assessment [RC] Click To Edit Care 05/03/16 14:24 Active RT Pre-Treatment Assessment [RC] Click To Edit Care 05/03/16 14:24 Active Up ad Maura [RC] ASDIRECTED Care 05/03/16 14:09 Active Up to Chair [RC] BID Care 05/03/16 14:10 Active VTE/DVT Education [RC] PER UNIT ROUTINE Care 05/03/16 14:13 Active Vital Signs [RC] Q1H Care 05/03/16 14:09 Active PT Evaluation and Treatment [CONS] Routine Cons 05/03/16 14:09 Active Respiratory Care Assess and Treatment [CONS] Routine Cons 05/03/16 14:09 Active Nothing Per Oral Diet [DIET] Diet 05/03/16 Dinner Active Abdomen 1V Flat [CR] Routine Exams 05/04/16 04:52 Taken Abdomen Pelvis wo Cont [CT] Stat Exams 05/03/16 19:50 Taken Acetaminophen [Tylenol] Med 05/03/16 14:09 Active 650 mg PO Q6H PRN Albuterol [Proventil Neb Soln] Med 05/03/16 14:25 Active 2.5 mg NEB Q4HRRT PRN Budesonide [Pulmicort] Med 05/03/16 21:00 Active 0.5 mg NEB BIDRT Cyclobenzaprine [Flexeril] Med 05/03/16 22:00 Active 5 mg PO TID HYDROmorphone/Normal Saline [Dilaudid PROCUREMENT FORESTER 6 MG in NS 30 Med 05/03/16 15:27 Active ML] 6 mg IV ASDIRECTED PRN Lactated Ringers [Ringers, Lactated] 1,000 ml Med 05/03/16 14:15 Active IV ASDIRECTED Ondansetron [Zofran] Med 05/03/16 14:09 Active 4 mg IVPUSH Q6H PRN Pantoprazole [Protonix IV] 40 mg Med 05/04/16 09:00 Ordered Sodium Chloride 0.9% [Normal Saline] 10 ml IVPUSH DAILY Piperacillin/Tazobactam [Piperacil-Tazobact] 3.375 gm Med 05/03/16 20:45 Active Sodium Chloride 0.9% [Normal Saline] 50 ml IV Q8H Polyethylene Glycol 3350 [MiraLAX] Med 05/03/16 14:09 Active 17 gm PO DAILY PRN diphenhydrAMINE [Benadryl] Med 05/03/16 14:09 Active 25 mg IVPUSH Q4H PRN fentaNYL [Sublimaze] Med 05/03/16 14:40 Active 50 mcg IVPUSH Q5M PRN hydrALAZINE [Apresoline] Med 05/04/16 02:03 Active 10 mg IVPUSH Q1H PRN Abdominal Binder [OM.PC] Per Unit Routine Oth 05/03/16 14:11 Ordered DVT/VTE Prophylaxis Reflex [OM.PC] Routine Oth 05/03/16 14:09 Ordered NG [Nasogastric Orogastric Tube Insertion] [OM.PC] Ot 05/04/16 04:54 Ordered Routine Medication Orders Acetaminophen (Tylenol) 650 mg PO Q6H PRN PRN Reason: Pain (mild 1-3) Last Admin: 05/03/16 23:27 Dose: 650 mg Albuterol (Proventil Neb Soln) 2.5 mg NEB Q4HRRT PRN PRN Reason: Shortness of Breath Last Admin: 05/03/16 19:52 Dose: 2.5 mg Budesonide (Pulmicort) 0.5 mg NEB BIDRT [facility] Last Admin: 05/03/16 21:29 Dose: 0.5 mg Cyclobenzaprine HCl (Flexeril) 5 mg PO TID [facility] Last Admin: 05/04/16 05:25 Dose: 5 mg Admin: 05/03/16 21:28 Dose: 5 mg Diphenhydramine HCl (Benadryl) 25 mg IVPUSH Q4H PRN PRN Reason: Itching Last Admin: 05/03/16 23:27 Dose: 25 mg Fentanyl (Sublimaze) 50 mcg IVPUSH Q5M PRN PRN Reason: Pain (severe 7-10) Stop: 05/04/16 14:40 Hydralazine HCl (Apresoline) 10 mg IVPUSH Q1H PRN PRN Reason: Hypertension Last Admin: 05/04/16 02:22 Dose: 10 mg Hydromorphone HCl (Dilaudid Cruise Coordinator 6 Mg In Ns 30 Ml) 6 mg IV ASDIRECTED PRN; Protocol PRN Reason: Abdominal Pain Last Admin: 05/03/16 15:44 Dose: 6 mg Lactated Ringer's (Ringers, Lactated) 1,000 mls @ 125 mls/hr IV ASDIRECTED [facility] Last Admin: 05/03/16 23:25 Dose: 125 mls/hr Infusion: 05/03/16 23:25 Dose: 125 mls/hr Admin: 05/03/16 15:41 Dose: 125 mls/hr Piperacillin Sod/Tazobactam (Sod 3.375 gm/ Sodium Chloride) 50 mls @ 100 mls/ hr IV Q8H [facility] Last Admin: 05/04/16 04:37 Dose: 100 mls/hr Infusion: 05/03/16 21:58 Dose: 100 mls/hr Admin: 05/03/16 21:28 Dose: 100 mls/hr Pantoprazole Sodium 40 mg/ (Sodium Chloride) 10 mls @ 300 mls/hr IVPUSH DAILY [facility] Ondansetron HCl (Zofran) 4 mg IVPUSH Q6H PRN PRN Reason: Nausea/Vomiting Last Admin: 05/04/16 05:20 Dose: 4 mg Admin: 05/03/16 23:27 Dose: 4 mg Polyethylene Glycol (Miralax) 17 gm PO DAILY PRN PRN Reason: Constipation Sodium Chloride (Saline Flush) 10 ml FLUSH ASDIRECTED PRN PRN Reason: Keep Vein Open Sodium Chloride (Saline Flush) 2.5 ml FLUSH ASDIRECTED PRN PRN Reason: Keep Vein Open Sodium Chloride (Saline Flush) 10 ml FLUSH ASDIRECTED PRN PRN Reason: Keep Vein Open Sodium Chloride (Saline Flush) 2.5 ml FLUSH ASDIRECTED PRN PRN Reason: Keep Vein Open - Plan Plan (Free Text/Narrative):: -Pain: Dilaudid PROCUREMENT FORESTER -Cardiovascular: Hydralazine 10mg IV q 1hr SBP >160 -Pulmonary: Out of bed today at least once. Encourage IS use. Home meds for COPD written. -Abdomen: NG in place with large amount of bilious output. Patient's abdomen feels much softer and less tender since placement of NG. Leave in place for now. Protonix IV since patient is NPO -Renal: BUN/Cr stable. UOP adequate. -Heme stable. Plts stable. -Infectious: IV zosyn for wound prophylaxis. Will D/C tomorrow if stable. -Px: NO chemical DVT px at this time.
[2016-05-04] MEDS: Pantoprazole 40 MG in Sodium Chloride 0.9% 10 ML IVPUSH SCH (08:01)
--- NOTE | 2016-05-04 11:52 | PCM48HPAN ---
Post Anesthesia Note - EVALUATION WITHIN 48HRS OF ANESTHETIC Vital Signs in Normal Range: Yes Patient Participated in Evaluation: Yes Respiratory Function Stable: Yes Airway Patent: Yes Cardiovascular Function Stable: Yes Hydration Status Stable: Yes Pain Control Satisfactory: Yes Nausea and Vomiting Control Satisfactory: Yes Mental Status Recovered: Yes
[2016-05-04] MEDS: D5 1/2 NS w/ 20 mEq/L KCl 1,000 ML IV SCH ×2 (12:05→23:42)
--- NOTE | 2016-05-04 18:27 | CT ---
EXAM DATE: 05/03/16 PATIENT'S AGE: 65 Patient: CATERINA ROSE Facility: [place], [place] Site . Site : 1950 Study: CT Abdomen/Pelvis [id number]/15/2017 8:46:31 PM Ordering Physician: Racheal Reeves Final Report: INDICATION: Ventral hernia repair earlier today. Abdominal distention. CT ABDOMEN AND PELVIS WITHOUT CONTRAST TECHNIQUE: Multidetector CT imaging was performed through the abdomen and pelvis without intravenous contrast administration. Coronal and sagittal reconstructions were generated. COMPARISON: 07/23/2009 CT abdomen and pelvis. FINDINGS: Lower chest: Pulmonary emphysema and moderate bibasilar atelectasis and/or scarring. Liver: Within normal limits. Gallbladder and bile ducts: No gallbladder wall thickening or calcified gallstones. No biliary dilation identified. Pancreas: Unremarkable. Spleen: Normal. Adrenals: No nodules or masses. Kidneys, ureters, and urinary bladder: No urinary tract stones identified. No renal masses or hydronephrosis. Pena catheter extending into the urinary bladder, which is largely collapsed. Gastrointestinal tract: Normal caliber small bowel without wall thickening. The appendix is normal. A few sigmoid colon diverticula, without evidence of diverticulitis. Vascular structures: Normal caliber abdominal aorta. Mild aortoiliac atherosclerotic calcifications. Abdominal wall: Recent postoperative changes in the anterior abdominal wall in the periumbilical and supraumbilical areas, with surgical mesh within the anterior abdominal wall and postoperative fat stranding and small gas collections in the subcutaneous soft tissues. No significant hematoma identified in this area. Mild fat stranding is also seen in the anterior mid abdominal fat just deep to the surgical site. Peritoneum: Small amount of postoperative pneumoperitoneum. No free fluid or evidence of intra-abdominal hemorrhage. Lymph nodes: No pathologically enlarged nodes identified. Reproductive organs: No pelvic masses. Bones: Old healed lower right rib fractures, as before. IMPRESSION: 1. Recent postoperative changes in the anterior abdominal wall as detailed above. No abdominal wall hematoma or intra-abdominal hemorrhage identified. 2. Nonacute findings as detailed above. Results were discussed with Dr. Springer at 9:20 p.m. on 05/03/2016. PAYAM MON MD [employer] [employer] Dictated by Emir Mon MD @ 05/03/2016 9:26:33 PM Dictated by: mEir Mon MD @ 05/03/2016 21:27:05 (Electronic Signature) Report Signed by Proxy and Original Signed Document filed in the Medical Record. CLIFF
--- NOTE | 2016-05-04 18:57 | CR ---
EXAM DATE: 05/03/16 PATIENT'S AGE: 65 Patient: CATERINA ROSE Facility: [place], [place] Site . Site : 1950 Study: XRay Abdomen [id number]/16/2017 5:05:54 AM Ordering Physician: Racheal Reeves Final Report: Indication: NG placement Technique: A single view of the upper abdomen and chest. Comparison: None available Findings/Impression: A nasogastric tube with the tip in the distal stomach. Gaseous gastric distention. Subsegmental atelectasis in the left lung base. A chronic right rib deformity. Dictated by Telly Rinaldi MD @ 05/04/2016 5:13:09 AM Dictated by: Telly Rinaldi MD @ 05/04/2016 05:13:14 (Electronic Signature) Report Signed by Proxy and Original Signed Document filed in the Medical Record. CLIFF
[2016-05-05] MEDS: Piperacillin/Tazobactam 3.375 GM in Sodium Chloride 0.9% 50 ML IV SCH ×2 (05:24→12:24)
[2016-05-05 05:48] LABS: CHLORIDE,CL 107 mmol/L (98-110); SODIUM,NA 144 mmol/L (136-146)
[2016-05-05] MEDS: Budesonide 0.5 MG/2 ML Neb Susp NEB SCH ×2 (07:41→20:32)
[2016-05-05] MEDS: Pantoprazole 40 MG in Sodium Chloride 0.9% 10 ML IVPUSH SCH (08:00)
[2016-05-05] MEDS ORDERED: Magnesium Sulfate/Water 4 GM in Premix Bag 1 BAG IV ONE (08:10)
[2016-05-05] MEDS ORDERED: Potassium Phosphates 3 mMole/ML 15 ML SDV IV ONE (08:15)
[2016-05-05] MEDS ORDERED: POTASSIUM PHOSPHATES IV SCH (08:45)
[2016-05-05] MEDS ORDERED: SODIUM CHLORIDE IV SCH (08:45)
[2016-05-05] MEDS: Dextrose 5%-0.45% NaCl 1,000 ML IV SCH (10:03)
--- NOTE | 2016-05-05 10:07 | CR ---
EXAMINATION: Abdomen HISTORY: NG tube placement COMPARISON: 05/04/2016 TECHNIQUE: Upright images obtained of the abdomen. FINDINGS: There is an NG tube noted with tip in the distal stomach. There is left pleural scarring n oted otherwise the lung bases are grossly clear. No free air. Nonspecific bowel gas pattern is noted . Visualized osseous structures appear normal. IMPRESSION: NG tube noted with tip in the distal stomach.
--- NOTE | 2016-05-05 10:15 | PCM.SURGPN ---
- General Info Date of Service: 05/05/16 Date of Surgery/Procedure: 05/03/16 POD#: 2 Post-Op Diagnosis: Umbilical and ventral hernia x 2 Admission Diagnosis/Problem: Umbilical hernia Functional Status: Reports: pain controlled, ambulating, incentive spirometry, other (Pain well controlled. Up to chair and ambulating often. Patient using IS and coughing/deep breathing. Abdomen distended but no more than normal. No flatus at this point. ) - Review of Systems General: Reports: No Symptoms HEENT: Reports: no symptoms Pulmonary: Reports: cough, sputum (clear) Cardiovascular: Reports: No Symptoms Gastrointestinal: Reports: Constipation, Decreased appetite Genitourinary: Reports: no symptoms Musculoskeletal: Reports: no symptoms - Patient Data Vitals - most recent: Last Vital Signs Temp 36.8 C 05/05/16 08:00 Pulse 75 05/05/16 08:00 Resp 20 05/05/16 08:00 BP 157/81 H 05/05/16 04:00 Pulse Ox 94 L 05/05/16 08:00 Weight - most recent: 101 kg I&O - last 24 hours: Intake & Output 05/04/16 05/05/16 05/05/16 22:59 06:59 14:59 Intake Total 120 1020 487 Output Total 800 600 600 Balance -680 420 -113 Lab Results last 24 hrs: Laboratory Results - last 24 hr 05/05/16 05/05/16 Range/Units 05:02 05:02 WBC 13.19 H (4.0-11.0) K/uL RBC 4.24 L (4.50-5.90) M/uL Hgb 12.7 L (13.0-17.0) g/dL Hct 41.3 (38.0-50.0) % MCV 97.4 (80.0-98.0) fL MCH 30.0 (27.0-32.0) pg MCHC 30.8 L (31.0-37.0) g/dL RDW Std Deviation 52.3 (28.0-62.0) fl RDW Coeff of Kennedy 15 (11.0-15.0) % Plt Count 182 (150-400) K/uL MPV 12.40 H (7.40-12.00) fL Nucleated RBC % 0.0 /100WBC Nucleated RBCs # 0 K/uL Sodium 144 (136-146) mmol/L Potassium 4.1 (3.5-5.1) mmol/L Chloride 107 (98-110) mmol/L Carbon Dioxide 30 (21-31) mmol/L BUN 9 (6.0-23.0) mg/dL Creatinine 0.8 (0.6-1.5) mg/dL Est Cr Clr Drug Dosing 93.78 mL/min Estimated GFR (MDRD) > 60.0 ml/min Glucose 139 H (60-110) mg/dL Calcium 8.4 L (8.8-10.8) mg/dL Phosphorus 1.9 L (2.4-4.7) mg/dL Magnesium 1.8 (1.5-2.3) mEq/L Med Orders - Current: Current Medications Acetaminophen (Tylenol) 650 mg PO Q6H PRN PRN Reason: Pain (mild 1-3) Last Admin: 05/03/16 23:27 Dose: 650 mg Albuterol (Proventil Neb Soln) 2.5 mg NEB Q4HRRT PRN PRN Reason: Shortness of Breath Last Admin: 05/03/16 19:52 Dose: 2.5 mg Budesonide (Pulmicort) 0.5 mg NEB BIDRT PHAM Last Admin: 05/05/16 07:41 Dose: 0.5 mg Diphenhydramine HCl (Benadryl) 25 mg IVPUSH Q4H PRN PRN Reason: Itching Last Admin: 05/03/16 23:27 Dose: 25 mg Heparin Sodium (Porcine) (Heparin Sodium) 5,000 units SUBCUT Q12HR [facility] Hydralazine HCl (Apresoline) 10 mg IVPUSH Q1H PRN PRN Reason: Hypertension Last Admin: 05/04/16 02:22 Dose: 10 mg Hydromorphone HCl (Dilaudid [place] 6 Mg In Ns 30 Ml) 6 mg IV ASDIRECTED PRN; Protocol PRN Reason: Abdominal Pain Last Admin: 05/03/16 15:44 Dose: 6 mg Piperacillin Sod/Tazobactam (Sod 3.375 gm/ Sodium Chloride) 50 mls @ 100 mls/ hr IV Q8H PHAM Last Admin: 05/05/16 05:24 Dose: 100 mls/hr Pantoprazole Sodium 40 mg/ (Sodium Chloride) 10 mls @ 300 mls/hr IVPUSH DAILY [facility] Last Admin: 05/05/16 08:00 Dose: 300 mls/hr Potassium Phosphate 9 mmole/ (Sodium Chloride) 253 mls @ 84.333 mls/hr IV ONETIME PHAM Dextrose/Sodium Chloride (Dextrose 5%-1/2 Ns) 1,000 mls @ 100 mls/hr IV ASDIRECTED [facility] Last Admin: 05/05/16 10:03 Dose: 100 mls/hr Ondansetron HCl (Zofran) 4 mg IVPUSH Q6H PRN PRN Reason: Nausea/Vomiting Last Admin: 05/04/16 05:20 Dose: 4 mg Polyethylene Glycol (Miralax) 17 gm PO DAILY PRN PRN Reason: Constipation Sodium Chloride (Saline Flush) 10 ml FLUSH ASDIRECTED PRN PRN Reason: Keep Vein Open Sodium Chloride (Saline Flush) 2.5 ml FLUSH ASDIRECTED PRN PRN Reason: Keep Vein Open Sodium Chloride (Saline Flush) 10 ml FLUSH ASDIRECTED PRN PRN Reason: Keep Vein Open Sodium Chloride (Saline Flush) 2.5 ml FLUSH ASDIRECTED PRN PRN Reason: Keep Vein Open Discontinued Medications Bupivacaine HCl (Sensorcaine-Mpf 0.5%) Confirm Administered Dose 30 ml .ROUTE .STK-MED ONE Stop: 05/03/16 10:17 Cefazolin Sodium (Ancef) Confirm Administered Dose 1 gm .ROUTE .STK-MED ONE Stop: 05/03/16 10:18 Cefazolin Sodium (Ancef) Confirm Administered Dose 2 gm .ROUTE .STK-MED ONE Stop: 05/03/16 10:43 Cyclobenzaprine HCl (Flexeril) 5 mg PO TID [facility] Last Admin: 05/04/16 05:25 Dose: 5 mg Ephedrine Sulfate (Ephedrine Sulfate) Confirm Administered Dose 50 mg .ROUTE .STK-MED ONE Stop: 05/03/16 10:51 Fentanyl (Sublimaze) Confirm Administered Dose 300 mcg .ROUTE .STK-MED ONE Stop: 05/03/16 09:54 Fentanyl (Sublimaze) Confirm Administered Dose 100 mcg .ROUTE .STK-MED ONE Stop: 05/03/16 11:51 Fentanyl (Sublimaze) 50 mcg IVPUSH Q5M PRN PRN Reason: Pain (severe 7-10) Stop: 05/04/16 14:40 Glycopyrrolate () 1 mg IVPUSH .K-MED ONE Stop: 05/03/16 10:48 Hydromorphone HCl (Dilaudid) Confirm Administered Dose 2 mg .ROUTE .K-MED ONE Stop: 05/03/16 12:19 Hydromorphone HCl (Dilaudid [place] 6 Mg In Ns 30 Ml) 6 mg IV ASDIRECTED PRN; Protocol PRN Reason: Abdominal Pain Lactated Ringer's (Ringers, Lactated) 1,000 mls @ 125 mls/hr IV ASDIRECTED [facility] Last Admin: 05/03/16 10:04 Dose: 125 mls/hr Cefazolin Sodium/Dextrose 2 gm (/ Premix) 50 mls @ 100 mls/hr IV ONETIME ONE Stop: 04/17/16 12:19 Cefazolin Sodium/Dextrose 2 gm (/ Premix) 50 mls @ 100 mls/hr IV ONETIME ONE Stop: 05/02/16 11:21 Last Admin: 05/03/16 15:28 Dose: Not Given Lactated Ringer's (Ringers, Lactated) 1,000 mls @ 125 mls/hr IV ASDIRECTED [facility] Sodium Chloride (Normal Saline) Confirm Administered Dose 20 mls @ as directed .ROUTE .[facility] ONE Stop: 05/03/16 10:43 Lactated Ringer's (Ringers, Lactated) 1,000 mls @ 125 mls/hr IV ASDIRECTED [facility] Last Admin: 05/03/16 23:25 Dose: 125 mls/hr Potassium Chloride/Dextrose/Sod Cl (D5 1/2 Ns W/ 20 Meq/L Kcl) 1,000 mls @ 100 mls/hr IV ASDIRECTED [facility] Last Admin: 05/04/16 23:42 Dose: 100 mls/hr Magnesium Sulfate 4 gm/ Premix 100 mls @ 50 mls/hr IV ONETIME ONE Stop: 05/05/16 10:09 Last Admin: 05/05/16 09:04 Dose: 50 mls/hr Lidocaine (Xylocaine-Mpf 2%) Confirm Administered Dose 5 ml .ROUTE .[facility]-MED ONE Stop: 05/03/16 09:53 Metoprolol Tartrate (Lopressor) Confirm Administered Dose 5 mg .ROUTE .STK-MED ONE Stop: 05/03/16 14:09 Midazolam HCl (Versed 1 Mg/Ml) Confirm Administered Dose 2 mg .ROUTE .STK-MED ONE Stop: 05/03/16 09:54 Neostigmine Methylsulfate (Neostigmine) 5 mg IV .STK-MED ONE Stop: 05/03/16 11:58 Ondansetron HCl (Zofran) Confirm Administered Dose 4 mg .ROUTE .STK-MED ONE Stop: 05/03/16 09:54 Ondansetron HCl (Zofran) 4 mg IVPUSH ONETIME ONE Stop: 05/04/16 02:02 Last Admin: 05/04/16 02:22 Dose: 4 mg Phenylephrine HCl (Phenylephrine In Ns 100 Mcg/Ml) Confirm Administered Dose 1 mg .ROUTE .STK-MED ONE Stop: 05/03/16 10:54 Potassium Phosphate (Potassium Phosphates) 3 mmole IV ONETIME ONE Stop: 05/05/16 08:16 Propofol (Diprivan 20 Ml) Confirm Administered Dose 200 mg .ROUTE .STK-MED ONE Stop: 05/03/16 09:53 Propofol (Diprivan 20 Ml) Confirm Administered Dose 200 mg .ROUTE .STK-MED ONE Stop: 05/03/16 13:42 Rocuronium [place] (Zemuron) Confirm Administered Dose 100 mg .ROUTE .STK-MED ONE Stop: 05/03/16 09:53 Succinylcholine Chloride (Succinylcholine In Ns Pf) 200 mg IV .STK-MED ONE Stop: 05/03/16 11:04 Tiotropium [place] (Spiriva Handihaler) 18 mcg INH ONETIME ONE Stop: 05/03/16 14:25 Last Admin: 05/03/16 15:53 Dose: 1 cap - Exam Wound/Incisions: healing well, no drainage, other (ecchymosis along inferior aspect of incision ) General: alert, oriented HEENT: Pupils equal, Pupils reactive Lungs: Clear to auscultation, Decreased breath sounds (to bases), Other (No crackles or rhonchi ) Cardiovascular: Regular Rate, Regular Rhythm Abdomen: bowel sounds present, soft, no tenderness, distension Extremities: no edema Skin: warm, dry, intact Neurological: no new focal deficit Psy/Mental Status: alert, normal affect, normal mood - Problem List & Annotations (1) Umbilical hernia SNOMED Code(s): 179442873, 962046744 Code(s): K42.9 - UMBILICAL HERNIA WITHOUT OBSTRUCTION OR GANGRENE Status: Acute Current Visit: Yes (2) Ventral hernia SNOMED Code(s): 466646728 Code(s): K43.9 - VENTRAL HERNIA WITHOUT OBSTRUCTION OR GANGRENE Status: Acute Current Visit: Yes (3) Postoperative ileus SNOMED Code(s): 688103152 Code(s): K91.3 - POSTPROCEDURAL INTESTINAL OBSTRUCTION Status: Acute Current Visit: Yes - Problem List Review Problem List Initiated/Reviewed/Updated: Yes - My Orders Last 24 Hours: Active Orders 24 hr Category Date Time Status Transfer Patient (Change bed) [ADT] Routine ADT 05/04/16 16:57 Ordered Abdomen 1V Upright [CR] Routine Exams 05/05/16 09:57 Ordered BMP [BASIC METABOLIC PANEL,BMP] [CHEM] AM Lab 05/06/16 05:11 Ordered BMP [BASIC METABOLIC PANEL,BMP] [CHEM] AM Lab 05/07/16 05:11 Ordered MAGNESIUM [CHEM] AM Lab 05/06/16 05:11 Ordered MAGNESIUM [CHEM] AM Lab 05/07/16 05:11 Ordered PHOSPHORUS [CHEM] AM Lab 05/06/16 05:11 Ordered PHOSPHORUS [CHEM] AM Lab 05/07/16 05:11 Ordered Dextrose 5%-0.45% NaCl [Dextrose 5%-1/2 NS] 1,000 ml Med 05/05/16 09:30 Active IV ASDIRECTED Heparin Sodium Med 05/05/16 21:00 Ordered 5,000 units SUBCUT Q12HR Potassium Phosphates 9 mmole Med 05/05/16 08:45 Active Sodium Chloride 0.9% [Normal Saline] 250 ml IV ONETIME Medication Orders Acetaminophen (Tylenol) 650 mg PO Q6H PRN PRN Reason: Pain (mild 1-3) Last Admin: 05/03/16 23:27 Dose: 650 mg Albuterol (Proventil Neb Soln) 2.5 mg NEB Q4HRRT PRN PRN Reason: Shortness of Breath Last Admin: 05/03/16 19:52 Dose: 2.5 mg Budesonide (Pulmicort) 0.5 mg NEB BIDRT [facility] Last Admin: 05/05/16 07:41 Dose: 0.5 mg Admin: 05/04/16 20:39 Dose: 0.5 mg Admin: 05/04/16 07:10 Dose: 0.5 mg Admin: 05/03/16 21:29 Dose: 0.5 mg Diphenhydramine HCl (Benadryl) 25 mg IVPUSH Q4H PRN PRN Reason: Itching Last Admin: 05/03/16 23:27 Dose: 25 mg Heparin Sodium (Porcine) (Heparin Sodium) 5,000 units SUBCUT Q12HR [facility] Hydralazine HCl (Apresoline) 10 mg IVPUSH Q1H PRN PRN Reason: Hypertension Last Admin: 05/04/16 02:22 Dose: 10 mg Hydromorphone HCl (Dilaudid [employer] 6 Mg In Ns 30 Ml) 6 mg IV ASDIRECTED PRN; Protocol PRN Reason: Abdominal Pain Last Admin: 05/03/16 15:44 Dose: 6 mg Piperacillin Sod/Tazobactam (Sod 3.375 gm/ Sodium Chloride) 50 mls @ 100 mls/ hr IV Q8H [facility] Last Admin: 05/05/16 05:24 Dose: 100 mls/hr Infusion: 05/04/16 21:15 Dose: 100 mls/hr Admin: 05/04/16 20:45 Dose: 100 mls/hr Infusion: 05/04/16 12:15 Dose: 100 mls/hr Admin: 05/04/16 11:45 Dose: 100 mls/hr Infusion: 05/04/16 05:07 Dose: 100 mls/hr Admin: 05/04/16 04:37 Dose: 100 mls/hr Infusion: 05/03/16 21:58 Dose: 100 mls/hr Admin: 05/03/16 21:28 Dose: 100 mls/hr Pantoprazole Sodium 40 mg/ (Sodium Chloride) 10 mls @ 300 mls/hr IVPUSH DAILY [facility] Last Admin: 05/05/16 08:00 Dose: 300 mls/hr Infusion: 05/04/16 08:03 Dose: 300 mls/hr Admin: 05/04/16 08:01 Dose: 300 mls/hr Potassium Phosphate 9 mmole/ (Sodium Chloride) 253 mls @ 84.333 mls/hr IV ONETIME [facility] Dextrose/Sodium Chloride (Dextrose 5%-1/2 Ns) 1,000 mls @ 100 mls/hr IV ASDIRECTED [facility] Last Admin: 05/05/16 10:03 Dose: 100 mls/hr Ondansetron HCl (Zofran) 4 mg IVPUSH Q6H PRN PRN Reason: Nausea/Vomiting Last Admin: 05/04/16 05:20 Dose: 4 mg Admin: 05/03/16 23:27 Dose: 4 mg Polyethylene Glycol (Miralax) 17 gm PO DAILY PRN PRN Reason: Constipation Sodium Chloride (Saline Flush) 10 ml FLUSH ASDIRECTED PRN PRN Reason: Keep Vein Open Sodium Chloride (Saline Flush) 2.5 ml FLUSH ASDIRECTED PRN PRN Reason: Keep Vein Open Sodium Chloride (Saline Flush) 10 ml FLUSH ASDIRECTED PRN PRN Reason: Keep Vein Open Sodium Chloride (Saline Flush) 2.5 ml FLUSH ASDIRECTED PRN PRN Reason: Keep Vein Open - Plan Plan (Free Text/Narrative):: Pain: Dilaudid [place] Cardiovascular: PRN hydralazine for SBP >160. No home meds until bowels working. Lungs: Decreased BS to bases. Encourage OOB activity and IS. Abdomen: KUB shows NG tube in duodenum. Will pull back, re xray and watch output. IV protonix while NPO. Renal: UOP adequate BUN/Cr stable. Electrolytes- mag and phos low. Replacing. H/H and plts stable. WBC slightly elevated. Will keep IV antibiotics for one more day. DVT px to start today. Remove jha tomorrow.
--- NOTE | 2016-05-05 12:33 | CR ---
EXAMINATION: Abdomen HISTORY: NG tube placement COMPARISON: Same day TECHNIQUE: Single view FINDINGS/IMPRESSION: An NG tube is again noted which is slightly withdrawn with the tip and side por t likely within the stomach. Remaining visualized abdomen and lower chest appear unchanged.
[2016-05-05] MEDS: HYDROmorphone/Normal Saline 6 MG/30 ML PCA Vial IV PRN (19:22)
[2016-05-05] MEDS: Heparin Sodium 5,000 Units/ML Vial SUBCUT SCH (21:06)
[2016-05-06] MEDS: Dextrose 5%-0.45% NaCl 1,000 ML IV SCH ×3 (00:45→23:31)
[2016-05-06] MEDS: Budesonide 0.5 MG/2 ML Neb Susp NEB SCH ×2 (05:57→20:48)
[2016-05-06 07:24] LABS: CHLORIDE,CL 107 mmol/L (98-110); SODIUM,NA 144 mmol/L (136-146)
[2016-05-06] MEDS ORDERED: Calcium Gluconate 10% 1 GM/10 ML SDV IV ONE (07:59)
[2016-05-06] MEDS ORDERED: Magnesium Sulfate/Water 4 GM in Premix Bag 1 BAG IV ONE (08:01)
[2016-05-06] MEDS: Heparin Sodium 5,000 Units/ML Vial SUBCUT SCH ×2 (08:26→20:23)
[2016-05-06] MEDS: Pantoprazole 40 MG in Sodium Chloride 0.9% 10 ML IVPUSH SCH (08:27)
[2016-05-06] MEDS ORDERED: Potassium Phosphates 30 MMOLE in Sodium Chloride 0.9% 500 ML IV SCH ×3 (08:30→11:00)
--- NOTE | 2016-05-06 08:46 | PCM.SURGPN ---
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 Vitals stable overnight. NG with 1000ml out since 4 pm yesterday. Output clearer but still bile stained. Bowel sounds minimal. Phos and Mag replaced. Phos lower today. Patient ambulating halls. Jha removed yesterday and had to be replaced early this morning for hesitancy. ) - Review of Systems General: Reports: No Symptoms HEENT: Reports: no symptoms Pulmonary: Reports: no symptoms Cardiovascular: Reports: No Symptoms Gastrointestinal: Reports: No symptoms, Other (No flatus ) Genitourinary: Reports: no symptoms Musculoskeletal: Reports: no symptoms Skin: Reports: no symptoms - Patient Data Vitals - most recent: Last Vital Signs Temp 37.4 C 05/06/16 03:58 Pulse 77 05/06/16 03:58 Resp 18 05/06/16 03:58 BP 148/72 H 05/06/16 03:58 Pulse Ox 90 L 05/06/16 03:58 Weight - most recent: 101 kg I&O - last 24 hours: Intake & Output 05/05/16 05/06/16 05/06/16 22:59 06:59 14:59 Intake Total 0 0 Output Total 350 485 Balance -350 -485 Lab Results last 24 hrs: Laboratory Results - last 24 hr 05/06/16 Range/Units 06:51 Sodium 144 (136-146) mmol/L Potassium 3.8 (3.5-5.1) mmol/L Chloride 107 (98-110) mmol/L Carbon Dioxide 32 H (21-31) mmol/L BUN 9 (6.0-23.0) mg/dL Creatinine 0.7 (0.6-1.5) mg/dL Est Cr Clr Drug Dosing 107.18 mL/min Estimated GFR (MDRD) > 60.0 ml/min Glucose 133 H (60-110) mg/dL Calcium 8.2 L (8.8-10.8) mg/dL Phosphorus 1.7 L (2.4-4.7) mg/dL Magnesium 1.8 (1.5-2.3) mEq/L Med Orders - Current: Current Medications Acetaminophen (Tylenol) 650 mg PO Q6H PRN PRN Reason: Pain (mild 1-3) Last Admin: 05/03/16 23:27 Dose: 650 mg Albuterol (Proventil Neb Soln) 2.5 mg NEB Q4HRRT PRN PRN Reason: Shortness of Breath Last Admin: 05/03/16 19:52 Dose: 2.5 mg Budesonide (Pulmicort) 0.5 mg NEB BIDRT [facility] Last Admin: 05/06/16 05:57 Dose: 0.5 mg Diphenhydramine HCl (Benadryl) 25 mg IVPUSH Q4H PRN PRN Reason: Itching Last Admin: 05/03/16 23:27 Dose: 25 mg Heparin Sodium (Porcine) (Heparin Sodium) 5,000 units SUBCUT Q12HR [facility] Last Admin: 05/06/16 08:26 Dose: 5,000 units Hydralazine HCl (Apresoline) 10 mg IVPUSH Q1H PRN PRN Reason: Hypertension Last Admin: 05/04/16 02:22 Dose: 10 mg Hydromorphone HCl (Dilaudid Salt Refiner 6 Mg In Ns 30 Ml) 6 mg IV ASDIRECTED PRN; Protocol PRN Reason: Abdominal Pain Last Admin: 05/05/16 19:22 Dose: 6 mg Pantoprazole Sodium 40 mg/ (Sodium Chloride) 10 mls @ 300 mls/hr IVPUSH DAILY [facility] Last Admin: 05/06/16 08:27 Dose: 300 mls/hr Dextrose/Sodium Chloride (Dextrose 5%-1/2 Ns) 1,000 mls @ 100 mls/hr IV ASDIRECTED [facility] Last Admin: 05/06/16 00:45 Dose: 100 mls/hr Magnesium Sulfate 4 gm/ Premix 100 mls @ 50 mls/hr IV ONETIME ONE Stop: 05/06/16 10:00 Last Admin: 05/06/16 08:26 Dose: 50 mls/hr Potassium Phosphate 30 mmole/ (Sodium Chloride) 510 mls @ 102 mls/hr IV ONETIME [facility] Ondansetron HCl (Zofran) 4 mg IVPUSH Q6H PRN PRN Reason: Nausea/Vomiting Last Admin: 05/04/16 05:20 Dose: 4 mg Polyethylene Glycol (Miralax) 17 gm PO DAILY PRN PRN Reason: Constipation Sodium Chloride (Saline Flush) 10 ml FLUSH ASDIRECTED PRN PRN Reason: Keep Vein Open Sodium Chloride (Saline Flush) 2.5 ml FLUSH ASDIRECTED PRN PRN Reason: Keep Vein Open Sodium Chloride (Saline Flush) 10 ml FLUSH ASDIRECTED PRN PRN Reason: Keep Vein Open Sodium Chloride (Saline Flush) 2.5 ml FLUSH ASDIRECTED PRN PRN Reason: Keep Vein Open Discontinued Medications Bupivacaine HCl (Sensorcaine-Mpf 0.5%) Confirm Administered Dose 30 ml .ROUTE .STK-MED ONE Stop: 05/03/16 10:17 Calcium Gluconate (Calcium Gluconate) 1 gm IV ONETIME ONE Stop: 05/06/16 08:00 Cefazolin Sodium (Ancef) Confirm Administered Dose 1 gm .ROUTE .STK-MED ONE Stop: 05/03/16 10:18 Cefazolin Sodium (Ancef) Confirm Administered Dose 2 gm .ROUTE .STK-MED ONE Stop: 05/03/16 10:43 Cyclobenzaprine HCl (Flexeril) 5 mg PO TID [facility] Last Admin: 05/04/16 05:25 Dose: 5 mg Ephedrine Sulfate (Ephedrine Sulfate) Confirm Administered Dose 50 mg .ROUTE .STK-MED ONE Stop: 05/03/16 10:51 Fentanyl (Sublimaze) Confirm Administered Dose 300 mcg .ROUTE .STK-MED ONE Stop: 05/03/16 09:54 Fentanyl (Sublimaze) Confirm Administered Dose 100 mcg .ROUTE .STK-MED ONE Stop: 05/03/16 11:51 Fentanyl (Sublimaze) 50 mcg IVPUSH Q5M PRN PRN Reason: Pain (severe 7-10) Stop: 05/04/16 14:40 Glycopyrrolate () 1 mg IVPUSH .STK-MED ONE Stop: 05/03/16 10:48 Hydromorphone HCl (Dilaudid) Confirm Administered Dose 2 mg .ROUTE .STK-MED ONE Stop: 05/03/16 12:19 Hydromorphone HCl (Dilaudid Salt Refiner 6 Mg In Ns 30 Ml) 6 mg IV ASDIRECTED PRN; Protocol PRN Reason: Abdominal Pain Lactated Ringer's (Ringers, Lactated) 1,000 mls @ 125 mls/hr IV ASDIRECTED [facility] Last Admin: 05/03/16 10:04 Dose: 125 mls/hr Cefazolin Sodium/Dextrose 2 gm (/ Premix) 50 mls @ 100 mls/hr IV ONETIME ONE Stop: 04/17/16 12:19 Cefazolin Sodium/Dextrose 2 gm (/ Premix) 50 mls @ 100 mls/hr IV ONETIME ONE Stop: 05/02/16 11:21 Last Admin: 05/03/16 15:28 Dose: Not Given Lactated Ringer's (Ringers, Lactated) 1,000 mls @ [facility] Sodium Chloride (Normal Saline) Confirm Administered Dose 20 mls @ as directed .ROUTE .STK-MED ONE Stop: 05/03/16 10:43 Lactated Ringer's (Ringers, Lactated) 1,000 mls @ 125 [facility]ls[facility] Last Admin: 05/03/16 23:25 Dose: 125 mls/hr Piperacillin Sod/Tazobactam (Sod 3.375 gm/ Sodium Chloride) 50 mls @ 100 mls/ hr IV Q8H [facility] Last Admin: 05/05/16 12:24 Dose: 100 mls/hr Potassium Chloride/Dextrose/Sod Cl (D5 1/2 Ns W/ 20 Meq/L Kcl) 1,000 mls @ 100 mls/hr IV ASDIRECTED [facility] Last Admin: 05/04/16 23:42 Dose: 100 mls/hr Magnesium Sulfate 4 gm/ Premix 100 mls @ 50 mls/hr IV ONETIME ONE Stop: 05/05/16 10:09 Last Admin: 05/05/16 09:04 Dose: 50 mls/hr Potassium Phosphate 9 mmole/ (Sodium Chloride) 253 mls @ 84.333 mls/hr IV ONETIME [facility] Last Admin: 05/05/16 13:35 Dose: 84.333 mls/hr Lidocaine (Xylocaine-Mpf 2%) Confirm Administered Dose 5 ml .ROUTE .STK-MED ONE Stop: 05/03/16 09:53 Metoprolol Tartrate (Lopressor) Confirm Administered Dose 5 mg .ROUTE .STK-MED ONE Stop: 05/03/16 14:09 Midazolam HCl (Versed 1 Mg/Ml) Confirm Administered Dose 2 mg .ROUTE .STK-MED ONE Stop: 05/03/16 09:54 Neostigmine Methylsulfate (Neostigmine) 5 mg IV .STK-MED ONE Stop: 05/03/16 11:58 Ondansetron HCl (Zofran) Confirm Administered Dose 4 mg .ROUTE .STK-MED ONE Stop: 05/03/16 09:54 Ondansetron HCl (Zofran) 4 mg IVPUSH ONETIME ONE Stop: 05/04/16 02:02 Last Admin: 05/04/16 02:22 Dose: 4 mg Phenylephrine HCl (Phenylephrine In Ns 100 Mcg/Ml) Confirm Administered Dose 1 mg .ROUTE .STK-MED ONE Stop: 05/03/16 10:54 Potassium Phosphate (Potassium Phosphates) 3 mmole IV ONETIME ONE Stop: 05/05/16 08:16 Propofol (Diprivan 20 Ml) Confirm Administered Dose 200 mg .ROUTE .STK-MED ONE Stop: 05/03/16 09:53 Propofol (Diprivan 20 Ml) Confirm Administered Dose 200 mg .ROUTE .STK-MED ONE Stop: 05/03/16 13:42 Rocuronium [place] (Zemuron) Confirm Administered Dose 100 mg .ROUTE .STK-MED ONE Stop: 05/03/16 09:53 Succinylcholine Chloride (Succinylcholine In Ns Pf) 200 mg IV .STK-MED ONE Stop: 05/03/16 11:04 Tiotropium [place] (Spiriva Handihaler) 18 mcg INH ONETIME ONE Stop: 05/03/16 14:25 Last Admin: 05/03/16 15:53 Dose: 1 cap - Exam Wound/Incisions: healing well, no drainage, other (Bruising along inferior aspect of incision) General: alert, oriented Lungs: Clear to auscultation, Normal respiratory effort Cardiovascular: Regular Rate Abdomen: bowel sounds present (very minimal ), soft, no tenderness, no distension Extremities: no edema Skin: warm, dry, intact Neurological: no new focal deficit Psy/Mental Status: alert, normal affect, normal mood - Problem List & Annotations (1) Umbilical hernia SNOMED Code(s): 037133963, 335199536 Code(s): K42.9 - UMBILICAL HERNIA WITHOUT OBSTRUCTION OR GANGRENE Status: Acute Current Visit: Yes (2) Ventral hernia SNOMED Code(s): 167600249 Code(s): K43.9 - VENTRAL HERNIA WITHOUT OBSTRUCTION OR GANGRENE Status: Acute Current Visit: Yes (3) Postoperative ileus SNOMED Code(s): 412900956 Code(s): K91.3 - POSTPROCEDURAL INTESTINAL OBSTRUCTION Status: Acute Current Visit: Yes (4) Hypomagnesemia SNOMED Code(s): 805628339 Code(s): E83.42 - HYPOMAGNESEMIA Status: Acute Current Visit: Yes (5) Hypophosphatemia SNOMED Code(s): 2697089 Code(s): E83.39 - OTHER DISORDERS OF PHOSPHORUS METABOLISM Status: Acute Current Visit: Yes (6) Urinary hesitancy SNOMED Code(s): 4021313 Code(s): R39.11 - HESITANCY OF MICTURITION Status: Acute Current Visit: Yes - Problem List Review Problem List Initiated/Reviewed/Updated: Yes - My Orders Last 24 Hours: Active Orders 24 hr Category Date Time Status Communication Order [RC] ROUTINE Care 05/06/16 01:01 Active Insert Jha Catheter [Insert Urinary Catheter] [OM.PC] Care 05/06/16 06:45 Ordered Q24H May Shower [RC] ASDIRECTED Care 05/05/16 18:26 Active Urinary Catheter Assessment [RC] ASDIRECTED Care 05/06/16 01:00 Active Urinary Catheter Assessment [RC] Q12H Care 05/06/16 06:40 Active BMP [BASIC METABOLIC PANEL,BMP] [CHEM] AM Lab 05/07/16 05:11 Ordered MAGNESIUM [CHEM] AM Lab 05/07/16 05:11 Ordered PHOSPHORUS [CHEM] AM Lab 05/07/16 05:11 Ordered PHOSPHORUS [CHEM] Routine Lab 05/06/16 16:00 Ordered Dextrose 5%-0.45% NaCl [Dextrose 5%-1/2 NS] 1,000 ml Med 05/05/16 09:30 Active IV ASDIRECTED Heparin Sodium Med 05/05/16 21:00 Active 5,000 units SUBCUT Q12HR Magnesium Sulfate/Water [Magnesium Sulfate 4 GM in Med 05/06/16 08:01 Active Water 100 ML] 4 gm Premix Bag 1 bag IV ONETIME Potassium Phosphates 30 mmole Med 05/06/16 08:30 Active Sodium Chloride 0.9% [Normal Saline] 500 ml IV ONETIME Medication Orders Acetaminophen (Tylenol) 650 mg PO Q6H PRN PRN Reason: Pain (mild 1-3) Last Admin: 05/03/16 23:27 Dose: 650 mg Albuterol (Proventil Neb Soln) 2.5 mg NEB Q4HRRT PRN PRN Reason: Shortness of Breath Last Admin: 05/03/16 19:52 Dose: 2.5 mg Budesonide (Pulmicort) 0.5 mg NEB BIDRT [facility] Last Admin: 05/06/16 05:57 Dose: 0.5 mg Admin: 05/05/16 20:32 Dose: 0.5 mg Admin: 05/05/16 07:41 Dose: 0.5 mg Admin: 05/04/16 20:39 Dose: 0.5 mg Admin: 05/04/16 07:10 Dose: 0.5 mg Admin: 05/03/16 21:29 Dose: 0.5 mg Diphenhydramine HCl (Benadryl) 25 mg IVPUSH Q4H PRN PRN Reason: Itching Last Admin: 05/03/16 23:27 Dose: 25 mg Heparin Sodium (Porcine) (Heparin Sodium) 5,000 units SUBCUT Q12HR [facility] Last Admin: 05/06/16 08:26 Dose: 5,000 units Admin: 05/05/16 21:06 Dose: 5,000 units Hydralazine HCl (Apresoline) 10 mg IVPUSH Q1H PRN PRN Reason: Hypertension Last Admin: 05/04/16 02:22 Dose: 10 mg Hydromorphone HCl (Dilaudid Salt Refiner 6 Mg In Ns 30 Ml) 6 mg IV ASDIRECTED PRN; Protocol PRN Reason: Abdominal Pain Last Admin: 05/05/16 19:22 Dose: 6 mg Admin: 05/03/16 15:44 Dose: 6 mg Pantoprazole Sodium 40 mg/ (Sodium Chloride) 10 mls @ 300 mls/hr IVPUSH DAILY [facility] Last Admin: 05/06/16 08:27 Dose: 300 mls/hr Infusion: 05/05/16 08:02 Dose: 300 mls/hr Admin: 05/05/16 08:00 Dose: 300 mls/hr Infusion: 05/04/16 08:03 Dose: 300 mls/hr Admin: 05/04/16 08:01 Dose: 300 mls/hr Dextrose/Sodium Chloride (Dextrose 5%-1/2 Ns) 1,000 mls @ 100 mls/hr IV ASDIRECTED [facility] Last Admin: 05/06/16 00:45 Dose: 100 mls/hr Infusion: 05/06/16 00:44 Dose: 100 mls/hr Admin: 05/05/16 10:03 Dose: 100 mls/hr Magnesium Sulfate 4 gm/ Premix 100 mls @ 50 mls/hr IV ONETIME ONE Stop: 05/06/16 10:00 Last Admin: 05/06/16 08:26 Dose: 50 mls/hr Potassium Phosphate 30 mmole/ (Sodium Chloride) 510 mls @ 102 mls/hr IV ONETIME [facility] Ondansetron HCl (Zofran) 4 mg IVPUSH Q6H PRN PRN Reason: Nausea/Vomiting Last Admin: 05/04/16 05:20 Dose: 4 mg Admin: 05/03/16 23:27 Dose: 4 mg Polyethylene Glycol (Miralax) 17 gm PO DAILY PRN PRN Reason: Constipation Sodium Chloride (Saline Flush) 10 ml FLUSH ASDIRECTED PRN PRN Reason: Keep Vein Open Sodium Chloride (Saline Flush) 2.5 ml FLUSH ASDIRECTED PRN PRN Reason: Keep Vein Open Sodium Chloride (Saline Flush) 10 ml FLUSH ASDIRECTED PRN PRN Reason: Keep Vein Open Sodium Chloride (Saline Flush) 2.5 ml FLUSH ASDIRECTED PRN PRN Reason: Keep Vein Open - Assessment Assessment (Free Text/Narrative):: POD # 3 umbilical hernia repair with mesh, ventral hernia repair with mesh, primary ventral hernia repair - Plan Plan (Free Text/Narrative):: 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 Home respiratory meds ordered GI: NG with high outputs still. NG pulled back 14 cm yesterday. Output appears clearer. No flatus. Await return of bowel function Renal: BUN/Cr stable. UOP adequate. Leave jha in place until discharge. Infectious: No signs/symptoms of infection. Zosyn D/C Px: IV protonix and heparin subq, SCDs
[2016-05-06] MEDS ORDERED: HYDROmorphone 1 MG/ML Syringe IVPUSH PRN (13:39)
[2016-05-06] MEDS ORDERED: Phenol 1.4% Oral Spray 177 ML Bottle MUCMEM PRN (19:43)
[2016-05-06] MEDS: hydrALAZINE 20 MG/ML SDV IVPUSH PRN (23:38)
[2016-05-07] MEDS: Budesonide 0.5 MG/2 ML Neb Susp NEB SCH ×2 (05:54→20:51)
[2016-05-07 06:59] LABS: CHLORIDE,CL 108 mmol/L (98-110); SODIUM,NA 145 mmol/L (136-146)
[2016-05-07] MEDS: Heparin Sodium 5,000 Units/ML Vial SUBCUT SCH ×2 (08:07→20:21)
[2016-05-07] MEDS: Pantoprazole 40 MG in Sodium Chloride 0.9% 10 ML IVPUSH SCH (08:07)
--- NOTE | 2016-05-07 08:49 | PCM.SURGPN ---
- General Info Date of Service: 05/07/16 Date of Surgery/Procedure: 05/03/16 POD#: 4 Functional Status: Reports: pain controlled, other (Dilaudid M1 [employer] d/c. Using minimal pain meds. Complains of phlem in throat and sore throat from NG. ) - Review of Systems General: Reports: No Symptoms Pulmonary: Reports: sputum Cardiovascular: Reports: No Symptoms Gastrointestinal: Reports: Flatus Genitourinary: Reports: no symptoms Musculoskeletal: Reports: no symptoms Skin: Reports: no symptoms - Patient Data Vitals - most recent: Last Vital Signs Temp 37.2 C 05/07/16 08:00 Pulse 82 05/07/16 08:00 Resp 18 05/07/16 08:00 BP 147/76 H 05/07/16 08:00 Pulse Ox 92 L 05/07/16 08:00 Weight - most recent: 101 kg I&O - last 24 hours: Intake & Output 05/06/16 05/07/16 05/07/16 22:59 06:59 14:59 Intake Total 0 0 0 Output Total 175 500 225 Balance -175 -500 -225 Lab Results last 24 hrs: Laboratory Results - last 24 hr 05/06/16 05/07/16 Range/Units 16:02 05:40 Sodium 145 (136-146) mmol/L Potassium 3.9 (3.5-5.1) mmol/L Chloride 108 (98-110) mmol/L Carbon Dioxide 30 (21-31) mmol/L BUN 9 (6.0-23.0) mg/dL Creatinine 0.8 (0.6-1.5) mg/dL Est Cr Clr Drug Dosing 93.78 mL/min Estimated GFR (MDRD) > 60.0 ml/min Glucose 127 H (60-110) mg/dL Calcium 8.6 L (8.8-10.8) mg/dL Phosphorus 2.4 2.0 L (2.4-4.7) mg/dL Magnesium 1.9 (1.5-2.3) mEq/L Med Orders - Current: Current Medications Acetaminophen (Tylenol) 650 mg PO Q6H PRN PRN Reason: Pain (mild 1-3) Last Admin: 05/03/16 23:27 Dose: 650 mg Albuterol (Proventil Neb Soln) 2.5 mg NEB Q4HRRT PRN PRN Reason: Shortness of Breath Last Admin: 05/03/16 19:52 Dose: 2.5 mg Budesonide (Pulmicort) 0.5 mg NEB BIDRT [facility] Last Admin: 05/07/16 05:54 Dose: 0.5 mg Diphenhydramine HCl (Benadryl) 25 mg IVPUSH Q4H PRN PRN Reason: Itching Last Admin: 05/03/16 23:27 Dose: 25 mg Heparin Sodium (Porcine) (Heparin Sodium) 5,000 units SUBCUT Q12HR [facility] Last Admin: 05/07/16 08:07 Dose: 5,000 units Hydralazine HCl (Apresoline) 10 mg IVPUSH Q1H PRN PRN Reason: Hypertension Last Admin: 05/06/16 23:38 Dose: 10 mg Hydromorphone HCl (Dilaudid) 1 mg IVPUSH Q2H PRN PRN Reason: Abdominal Pain Potassium Phosphate 30 mmole/ (Sodium Chloride) 510 mls @ 102 mls/hr IV ONETIME [facility] Last Admin: 05/06/16 09:24 Dose: 102 mls/hr Ondansetron HCl (Zofran) 4 mg IVPUSH Q6H PRN PRN Reason: Nausea/Vomiting Last Admin: 05/04/16 05:20 Dose: 4 mg Phenol/Menthol (Chloraseptic Throat [place]) 0 ml MUCMEM Q2H PRN PRN Reason: Sore Throat Last Admin: 05/06/16 20:23 Dose: 1 spray Polyethylene Glycol (Miralax) 17 gm PO DAILY PRN PRN Reason: Constipation Sodium Chloride (Saline Flush) 10 ml FLUSH ASDIRECTED PRN PRN Reason: Keep Vein Open Sodium Chloride (Saline Flush) 2.5 ml FLUSH ASDIRECTED PRN PRN Reason: Keep Vein Open Sodium Chloride (Saline Flush) 10 ml FLUSH ASDIRECTED PRN PRN Reason: Keep Vein Open Sodium Chloride (Saline Flush) 2.5 ml FLUSH ASDIRECTED PRN PRN Reason: Keep Vein Open Discontinued Medications Bupivacaine HCl (Sensorcaine-Mpf 0.5%) Confirm Administered Dose 30 ml .ROUTE .STK-MED ONE Stop: 05/03/16 10:17 Calcium Gluconate (Calcium Gluconate) 1 gm IV ONETIME ONE Stop: 05/06/16 08:00 Last Admin: 05/06/16 09:10 Dose: Not Given Cefazolin Sodium (Ancef) Confirm Administered Dose 1 gm .ROUTE .STK-MED ONE Stop: 05/03/16 10:18 Cefazolin Sodium (Ancef) Confirm Administered Dose 2 gm .ROUTE .STK-MED ONE Stop: 05/03/16 10:43 Cyclobenzaprine HCl (Flexeril) 5 mg PO TID [facility] Last Admin: 05/04/16 05:25 Dose: 5 mg Ephedrine Sulfate (Ephedrine Sulfate) Confirm Administered Dose 50 mg .ROUTE .STK-MED ONE Stop: 05/03/16 10:51 Fentanyl (Sublimaze) Confirm Administered Dose 300 mcg .ROUTE .STK-MED ONE Stop: 05/03/16 09:54 Fentanyl (Sublimaze) Confirm Administered Dose 100 mcg .ROUTE .STK-MED ONE Stop: 05/03/16 11:51 Fentanyl (Sublimaze) 50 mcg IVPUSH Q5M PRN PRN Reason: Pain (severe 7-10) Stop: 05/04/16 14:40 Glycopyrrolate () 1 mg IVPUSH .STK-MED ONE Stop: 05/03/16 10:48 Hydromorphone HCl (Dilaudid) Confirm Administered Dose 2 mg .ROUTE .STK-MED ONE Stop: 05/03/16 12:19 Hydromorphone HCl (Dilaudid [employer] 6 Mg In Ns 30 Ml) 6 mg IV ASDIRECTED PRN; Protocol PRN Reason: Abdominal Pain Hydromorphone HCl (Dilaudid [employer] 6 Mg In Ns 30 Ml) 6 mg IV ASDIRECTED PRN; Protocol PRN Reason: Abdominal Pain Last Admin: 05/05/16 19:22 Dose: 6 mg Lactated Ringer's (Ringers, Lactated) 1,000 mls @ 125 mls/hr IV ASDIRECTED [facility] Last Admin: 05/03/16 10:04 Dose: 125 mls/hr Cefazolin Sodium/Dextrose 2 gm (/ Premix) 50 mls @ 100 mls/hr IV ONETIME ONE Stop: 04/17/16 12:19 Cefazolin Sodium/Dextrose 2 gm (/ Premix) 50 mls @ 100 mls/hr IV ONETIME ONE Stop: 05/02/16 11:21 Last Admin: 05/03/16 15:28 Dose: Not Given Lactated Ringer's (Ringers, Lactated) 1,000 mls @ 125 mls/hr IV ASDIRECTED [facility] Sodium Chloride (Normal Saline) Confirm Administered Dose 20 mls @ as directed .ROUTE .K-MED ONE Stop: 05/03/16 10:43 Lactated Ringer's (Ringers, Lactated) 1,000 mls @ 125 mls/hr IV ASDIRECTED [facility] Last Admin: 05/03/16 23:25 Dose: 125 mls/hr Piperacillin Sod/Tazobactam (Sod 3.375 gm/ Sodium Chloride) 50 mls @ 100 mls/ hr IV Q8H [facility] Last Admin: 05/05/16 12:24 Dose: 100 mls/hr Pantoprazole Sodium 40 mg/ (Sodium Chloride) 10 mls @ 300 mls/hr IVPUSH DAILY [facility] Last Admin: 05/07/16 08:07 Dose: 300 mls/hr Potassium Chloride/Dextrose/Sod Cl (D5 1/2 Ns W/ 20 Meq/L Kcl) 1,000 mls @ 100 mls/hr IV ASDIRECTED [facility] Last Admin: 05/04/16 23:42 Dose: 100 mls/hr Magnesium Sulfate 4 gm/ Premix 100 mls @ 50 mls/hr IV ONETIME ONE Stop: 05/05/16 10:09 Last Admin: 05/05/16 09:04 Dose: 50 mls/hr Potassium Phosphate 9 mmole/ (Sodium Chloride) 253 mls @ 84.333 mls/hr IV ONETIME [facility] Last Admin: 05/05/16 13:35 Dose: 84.333 mls/hr Dextrose/Sodium Chloride (Dextrose 5%-1/2 Ns) 1,000 mls @ 100 mls/hr IV ASDIRECTED [facility] Last Admin: 05/06/16 23:31 Dose: 100 mls/hr Magnesium Sulfate 4 gm/ Premix 100 mls @ 50 mls/hr IV ONETIME ONE Stop: 05/06/16 10:00 Last Admin: 05/06/16 08:26 Dose: 50 mls/hr Potassium Phosphate 30 mmole/ (Sodium Chloride) 510 mls @ 102 mls/hr IV ONETIME [facility] Calcium Gluconate 1 gm/ Sodium (Chloride) 60 mls @ 120 mls/hr IV ONETIME [facility] Potassium Phosphate 30 mmole/ (Sodium Chloride) 510 mls @ 102 mls/hr IV ONETIME [facility] Calcium Gluconate 1 gm/ Sodium (Chloride) 60 mls @ 120 mls/hr IV ONETIME [facility] Lidocaine (Xylocaine-Mpf 2%) Confirm Administered Dose 5 ml .ROUTE .STK-MED ONE Stop: 05/03/16 09:53 Metoprolol Tartrate (Lopressor) Confirm Administered Dose 5 mg .ROUTE .STK-MED ONE Stop: 05/03/16 14:09 Midazolam HCl (Versed 1 Mg/Ml) Confirm Administered Dose 2 mg .ROUTE .STK-MED ONE Stop: 05/03/16 09:54 Neostigmine Methylsulfate (Neostigmine) 5 mg IV .STK-MED ONE Stop: 05/03/16 11:58 Ondansetron HCl (Zofran) Confirm Administered Dose 4 mg .ROUTE .STK-MED ONE Stop: 05/03/16 09:54 Ondansetron HCl (Zofran) 4 mg IVPUSH ONETIME ONE Stop: 05/04/16 02:02 Last Admin: 05/04/16 02:22 Dose: 4 mg Phenylephrine HCl (Phenylephrine In Ns 100 Mcg/Ml) Confirm Administered Dose 1 mg .ROUTE .STK-MED ONE Stop: 05/03/16 10:54 Potassium Phosphate (Potassium Phosphates) 3 mmole IV ONETIME ONE Stop: 05/05/16 08:16 Propofol (Diprivan 20 Ml) Confirm Administered Dose 200 mg .ROUTE .STK-MED ONE Stop: 05/03/16 09:53 Propofol (Diprivan 20 Ml) Confirm Administered Dose 200 mg .ROUTE .STK-MED ONE Stop: 05/03/16 13:42 Rocuronium [place] (Zemuron) Confirm Administered Dose 100 mg .ROUTE .STK-MED ONE Stop: 05/03/16 09:53 Succinylcholine Chloride (Succinylcholine In Ns Pf) 200 mg IV .STK-MED ONE Stop: 05/03/16 11:04 Tiotropium [place] (Spiriva Handihaler) 18 mcg INH ONETIME ONE Stop: 05/03/16 14:25 Last Admin: 05/03/16 15:53 Dose: 1 cap - Exam Wound/Incisions: healing well, no drainage Quality Assessment: supplemental oxygen General: alert, oriented Lungs: Normal respiratory effort Cardiovascular: Regular Rate Abdomen: soft, no tenderness, no distension Extremities: no edema Skin: warm, dry, intact Neurological: no new focal deficit Psy/Mental Status: alert, normal affect, normal mood - Problem List & Annotations (1) Umbilical hernia SNOMED Code(s): 693869029, 256756920 Code(s): K42.9 - UMBILICAL HERNIA WITHOUT OBSTRUCTION OR GANGRENE Status: Acute Current Visit: Yes (2) Ventral hernia SNOMED Code(s): 161527330 Code(s): K43.9 - VENTRAL HERNIA WITHOUT OBSTRUCTION OR GANGRENE Status: Acute Current Visit: Yes (3) Postoperative ileus SNOMED Code(s): 229992282 Code(s): K91.3 - POSTPROCEDURAL INTESTINAL OBSTRUCTION Status: Acute Current Visit: Yes (4) Hypomagnesemia SNOMED Code(s): 984526558 Code(s): E83.42 - HYPOMAGNESEMIA Status: Acute Current Visit: Yes (5) Hypophosphatemia SNOMED Code(s): 3297018 Code(s): E83.39 - OTHER DISORDERS OF PHOSPHORUS METABOLISM Status: Acute Current Visit: Yes (6) Urinary hesitancy SNOMED Code(s): 4912004 Code(s): R39.11 - HESITANCY OF MICTURITION Status: Acute Current Visit: Yes - Problem List Review Problem List Initiated/Reviewed/Updated: Yes - My Orders Last 24 Hours: Active Orders 24 hr Category Date Time Status Communication Order [RC] DAILY Care 05/06/16 15:00 Active Clear Liquid Diet [DIET] Diet 05/07/16 Lunch Ordered HYDROmorphone [Dilaudid] Med 05/06/16 13:39 Active 1 mg IVPUSH Q2H PRN Phenol [Chloraseptic Throat [place]] Med 05/06/16 19:43 Active 0 ml MUCMEM Q2H PRN Potassium Phosphates 30 mmole Med 05/06/16 09:08 Active Sodium Chloride 0.9% [Normal Saline] 500 ml IV ONETIME NG [Nasogastric Orogastric Tube Removal] [OM.PC] Oth 05/07/16 08:44 Ordered Routine Resuscitation Status Routine Resus Stat 05/07/16 03:58 Ordered Medication Orders Acetaminophen (Tylenol) 650 mg PO Q6H PRN PRN Reason: Pain (mild 1-3) Last Admin: 05/03/16 23:27 Dose: 650 mg Albuterol (Proventil Neb Soln) 2.5 mg NEB Q4HRRT PRN PRN Reason: Shortness of Breath Last Admin: 05/03/16 19:52 Dose: 2.5 mg Budesonide (Pulmicort) 0.5 mg NEB BIDRT [facility] Last Admin: 05/07/16 05:54 Dose: 0.5 mg Admin: 05/06/16 20:48 Dose: 0.5 mg Admin: 05/06/16 05:57 Dose: 0.5 mg Admin: 05/05/16 20:32 Dose: 0.5 mg Admin: 05/05/16 07:41 Dose: 0.5 mg Admin: 05/04/16 20:39 Dose: 0.5 mg Admin: 05/04/16 07:10 Dose: 0.5 mg Admin: 05/03/16 21:29 Dose: 0.5 mg Diphenhydramine HCl (Benadryl) 25 mg IVPUSH Q4H PRN PRN Reason: Itching Last Admin: 05/03/16 23:27 Dose: 25 mg Heparin Sodium (Porcine) (Heparin Sodium) 5,000 units SUBCUT Q12HR [facility] Last Admin: 05/07/16 08:07 Dose: 5,000 units Admin: 05/06/16 20:23 Dose: 5,000 units Admin: 05/06/16 08:26 Dose: 5,000 units Admin: 05/05/16 21:06 Dose: 5,000 units Hydralazine HCl (Apresoline) 10 mg IVPUSH Q1H PRN PRN Reason: Hypertension Last Admin: 05/06/16 23:38 Dose: 10 mg Admin: 05/04/16 02:22 Dose: 10 mg Hydromorphone HCl (Dilaudid) 1 mg IVPUSH Q2H PRN PRN Reason: Abdominal Pain Potassium Phosphate 30 mmole/ (Sodium Chloride) 510 mls @ 102 mls/hr IV ONETIME [facility] Last Admin: 05/06/16 09:24 Dose: 102 mls/hr Ondansetron HCl (Zofran) 4 mg IVPUSH Q6H PRN PRN Reason: Nausea/Vomiting Last Admin: 05/04/16 05:20 Dose: 4 mg Admin: 05/03/16 23:27 Dose: 4 mg Phenol/Menthol (Chloraseptic Throat [place]) 0 ml MUCMEM Q2H PRN PRN Reason: Sore Throat Last Admin: 05/06/16 20:23 Dose: 1 spray Polyethylene Glycol (Miralax) 17 gm PO DAILY PRN PRN Reason: Constipation Sodium Chloride (Saline Flush) 10 ml FLUSH ASDIRECTED PRN PRN Reason: Keep Vein Open Sodium Chloride (Saline Flush) 2.5 ml FLUSH ASDIRECTED PRN PRN Reason: Keep Vein Open Sodium Chloride (Saline Flush) 10 ml FLUSH ASDIRECTED PRN PRN Reason: Keep Vein Open Sodium Chloride (Saline Flush) 2.5 ml FLUSH ASDIRECTED PRN PRN Reason: Keep Vein Open - Plan Plan (Free Text/Narrative):: -D/C NG and advance diet to clears -Restart home meds. Starting maia-max for urinary hesitancy. Starting po pain meds. -Awaiting BM. Will start bowel regiment. D/C after BM.
[2016-05-07] MEDS ORDERED: Phosphorus #1 250 MG Tab PO ONE (08:51)
[2016-05-07] MEDS ORDERED: Acetaminophen/oxyCODONE 325-5 MG Tab PO PRN (08:52)
[2016-05-07] MEDS ORDERED: Magnesium Chloride 64 MG Tab.ER PO ONE (09:00)
[2016-05-07] MEDS ORDERED: Lisinopril 10 MG Tab PO SCH (09:00)
[2016-05-07] MEDS: Hydrochlorothiazide 25 MG Tab PO SCH (10:08)
[2016-05-07] MEDS: Lisinopril 10 MG Tab PO SCH (10:08)
[2016-05-07] MEDS: Phosphorus #1 250 MG Tab PO SCH ×2 (10:08→20:21)
[2016-05-07] MEDS: Polyethylene Glycol 3350 Powder 17 GM Packet PO SCH (10:09)
[2016-05-07] MEDS: Tamsulosin 0.4 MG Cap.ER PO SCH (17:01)
[2016-05-07] MEDS ORDERED: Multivitamin Tab PO SCH (21:00)
[2016-05-08] MEDS: Budesonide 0.5 MG/2 ML Neb Susp NEB SCH (06:04)
[2016-05-08 08:01] VITALS: BP 134/76
[2016-05-08] MEDS: Tamsulosin 0.4 MG Cap.ER PO SCH (08:49)
[2016-05-08] MEDS: Hydrochlorothiazide 25 MG Tab PO SCH (08:50)
[2016-05-08] MEDS: Lisinopril 10 MG Tab PO SCH (08:51)
[2016-05-08] MEDS: Polyethylene Glycol 3350 Powder 17 GM Packet PO SCH (08:53)
[2016-05-08] MEDS: Heparin Sodium 5,000 Units/ML Vial SUBCUT SCH (08:54)
--- NOTE | 2016-05-08 09:46 | PCM.DCSUM1 ---
Discharge Summary - Hospital Course Free Text/Narrative:: Patient is a 65-year-old male who presented for an elective umbilical hernia repair. During the patient's procedure two more ventral hernias were found superior to his umbilical hernia. One of these contained a loop of small bowel. The smallest ventral hernia was repaired primarily. The ventral hernia containing bowel was repaired with mesh. The umbilical hernia was also repaired with mesh albeit a much larger piece. Postoperatively the patient had abdominal distention and pain. A CT the abdomen was done that showed post-surgical changes but no evidence of any immediate postoperative complications. Shortly after the CT was performed the patient started having bilious vomiting. An NG was placed. The NG output was quite voluminous and bilious consistent with post- operative ileus. The patient's distention and abdominal pain improved greatly with NG drainage. On postop day 2 a repeat abdominal x-ray was performed that showed the tip of the NG tube in the distal stomach or first portion of duodenum. It was pulled back approximately 14 cm and still found to be within the stomach. After this his NG output decreased slightly but was still elevated. On postop day 3 the NG output appeared clear and started to decline in volume. The NG was then clamped overnight. Postop day 4 the patient had started passing gas and the NG was pulled. That afternoon the patient had a bowel movement. His diet was advanced from clears to a regular diet successfully. Another issue the patient had was urinary hesitancy. A Pena was placed in the OR and left in place until postop day 2. On postop day 2 the Pena was removed however the patient had significant hesitancy and a catheter had to be replaced. Once the patient was able to take an oral diet I started him on Flomax. The Pena catheter was removed again and the patient was able to urinate without difficulty. His incision today appears well healing with no signs of infection or breakdown. The patient is using minimal narcotics and is tolerating a regular diet. His vital signs are stable. He was cleared for discharge. - Discharge Data Discharge Date: 05/08/16 Discharge Disposition: Home, Self-Care 01 Condition: Good - Discharge Diagnosis/Problem(s) (1) Umbilical hernia SNOMED Code(s): 106951610, 090589919 ICD Code: K42.9 - UMBILICAL HERNIA WITHOUT OBSTRUCTION OR GANGRENE Status: Acute Current Visit: Yes (2) Ventral hernia SNOMED Code(s): 905388323 ICD Code: K43.9 - VENTRAL HERNIA WITHOUT OBSTRUCTION OR GANGRENE Status: Acute Current Visit: Yes (3) Postoperative ileus SNOMED Code(s): 494915656 ICD Code: K91.3 - POSTPROCEDURAL INTESTINAL OBSTRUCTION Status: Acute Current Visit: Yes (4) Hypomagnesemia SNOMED Code(s): 531921245 ICD Code: E83.42 - HYPOMAGNESEMIA Status: Acute Current Visit: Yes (5) Hypophosphatemia SNOMED Code(s): 7003145 ICD Code: E83.39 - OTHER DISORDERS OF PHOSPHORUS METABOLISM Status: Acute Current Visit: Yes (6) Urinary hesitancy SNOMED Code(s): 6660354 ICD Code: R39.11 - HESITANCY OF MICTURITION Status: Acute Current Visit: Yes - Patient Summary/Data Operative Procedure(s) Performed: Umbilical hernia repair with mesh, ventral hernia repair with mesh, primary ventral hernia repair Consults: Consultations 05/03/16 14:09 PT Evaluation and Treatment [CONS] Routine Respiratory Care Assess and Treatment [CONS] Routine - Patient Instructions Diet: Regular Diet as Tolerated Activity: No Lifting Over 20 Pounds (for 6 weeks ), Rest and Relax Today Driving: Do Not Drive Showering/Bathing: May Shower Wound/Incision Care: Keep Operative Site/Wound Site Clean and Dry Notify Provider of: Fever, Increased Pain, Swelling and Redness, Drainage, Nausea and/or Vomiting - Discharge Plan Prescriptions/Med Rec: Acetaminophen/oxyCODONE [Percocet 325-5 MG] 1 tab PO Q4H PRN #60 tablet PRN Reason: Pain Tamsulosin [Flomax] 0.4 mg PO BIDPC #10 cap.er Home Medications: Home Meds Albuterol Sulfate [Proair Hfa] 2 puff INH ASDIRECTED PRN 04/06/16 [History] Budesonide/Formoterol [Symbicort 160-4.5 MCG] 2 puff INH BID 04/06/16 [History] Lisinopril/Hydrochlorothiazide [Lisinopril-Hctz 20-25 mg Tab] 1 tab PO DAILY [History] Naproxen Sodium [Aleve] 1 tab PO TID PRN 04/06/16 [History] Tiotropium [Spiriva HandiHaler] 1 inhalation INH DAILY 04/06/16 [History] Tamsulosin [Flomax] 0.4 mg PO BIDPC #10 cap.er 05/07/16 [Rx] Acetaminophen/oxyCODONE [Percocet 325-5 MG] 1 tab PO Q4H PRN #60 tablet [Rx] Patient Handouts: Acetaminophen; Oxycodone tablets, Open Hernia Repair, Care After, [id number], Tamsulosin capsules Referrals: Lala Springer MD [Physician] - 05/22/16 1:45 pm - General Info Date of Service: 05/08/16 Admission Dx/Problem (Free Text: Umbilical hernia, incarcerated ventral hernia, reducible ventral hernia, Functional Status: Reports: pain controlled, tolerating diet, ambulating, urinating - Review of Systems General: Reports: No Symptoms HEENT: Reports: no symptoms Pulmonary: Reports: no symptoms Cardiovascular: Reports: No Symptoms Gastrointestinal: Reports: No symptoms Genitourinary: Reports: no symptoms Musculoskeletal: Reports: no symptoms Skin: Reports: no symptoms Neurological: Reports: No Symptoms Psychiatric: Reports: no symptoms - Patient Data Vitals - Most Recent: Last Vital Signs Temp 37.0 C 05/08/16 08:00 Pulse 90 05/08/16 08:00 Resp 19 05/08/16 08:00 BP 134/76 05/08/16 08:51 Pulse Ox 94 L 05/08/16 08:00 Weight - Most Recent: 101 kg I&O - Last 24 hours: Intake & Output 05/07/16 05/08/16 05/08/16 22:59 06:59 14:59 Intake Total 275 800 Output Total 775 300 Balance -500 500 Med Orders - Current: Current Medications Acetaminophen (Tylenol) 650 mg PO Q6H PRN PRN Reason: Pain (mild 1-3) Last Admin: 05/03/16 23:27 Dose: 650 mg Albuterol (Proventil Neb Soln) 2.5 mg NEB Q4HRRT PRN PRN Reason: Shortness of Breath Last Admin: 05/03/16 19:52 Dose: 2.5 mg Budesonide (Pulmicort) 0.5 mg NEB BIDRT PHAM Last Admin: 05/08/16 06:04 Dose: 0.5 mg Diphenhydramine HCl (Benadryl) 25 mg IVPUSH Q4H PRN PRN Reason: Itching Last Admin: 05/03/16 23:27 Dose: 25 mg Heparin Sodium (Porcine) (Heparin Sodium) 5,000 units SUBCUT Q12HR [facility] Last Admin: 05/08/16 08:54 Dose: 5,000 units Hydralazine HCl (Apresoline) 10 mg IVPUSH Q1H PRN PRN Reason: Hypertension Last Admin: 05/06/16 23:38 Dose: 10 mg Hydrochlorothiazide (Hydrochlorothiazide) 25 mg PO DAILY [facility] Last Admin: 05/08/16 08:50 Dose: 25 mg Hydromorphone HCl (Dilaudid) 1 mg IVPUSH Q2H PRN PRN Reason: Abdominal Pain Lisinopril (Prinivil) 20 mg PO DAILY [facility] Last Admin: 05/08/16 08:51 Dose: 20 mg Multivitamins/Minerals/Vitamin C (Tab-A-Aris) 1 tab PO BEDTIME [facility] Last Admin: 05/07/16 20:21 Dose: 1 tab Ondansetron HCl (Zofran) 4 mg IVPUSH Q6H PRN PRN Reason: Nausea/Vomiting Last Admin: 05/04/16 05:20 Dose: 4 mg Oxycodone/Acetaminophen (Percocet 325-5 Mg) 2 tab PO Q4H PRN PRN Reason: Abdominal Pain Phenol/Menthol (Chloraseptic Throat [place]) 0 ml MUCMEM Q2H PRN PRN Reason: Sore Throat Last Admin: 05/06/16 20:23 Dose: 1 spray Polyethylene Glycol (Miralax) 17 gm PO DAILY [facility] Last Admin: 05/08/16 08:53 Dose: 17 gm Sodium Chloride (Saline Flush) 10 ml FLUSH ASDIRECTED PRN PRN Reason: Keep Vein Open Sodium Chloride (Saline Flush) 2.5 ml FLUSH ASDIRECTED PRN PRN Reason: Keep Vein Open Tamsulosin HCl (Flomax) 0.4 mg PO BIDPC [facility] Last Admin: 05/08/16 08:49 Dose: 0.4 mg Discontinued Medications Bupivacaine HCl (Sensorcaine-Mpf 0.5%) Confirm Administered Dose 30 ml .ROUTE .STK-MED ONE Stop: 05/03/16 10:17 Calcium Gluconate (Calcium Gluconate) 1 gm IV ONETIME ONE Stop: 05/06/16 08:00 Last Admin: 05/06/16 09:10 Dose: Not Given Cefazolin Sodium (Ancef) Confirm Administered Dose 1 gm .ROUTE .STK-MED ONE Stop: 05/03/16 10:18 Cefazolin Sodium (Ancef) Confirm Administered Dose 2 gm .ROUTE .STK-MED ONE Stop: 05/03/16 10:43 Cyclobenzaprine HCl (Flexeril) 5 mg PO TID [facility] Last Admin: 05/04/16 05:25 Dose: 5 mg Ephedrine Sulfate (Ephedrine Sulfate) Confirm Administered Dose 50 mg .ROUTE .STK-MED ONE Stop: 05/03/16 10:51 Fentanyl (Sublimaze) Confirm Administered Dose 300 mcg .ROUTE .STK-MED ONE Stop: 05/03/16 09:54 Fentanyl (Sublimaze) Confirm Administered Dose 100 mcg .ROUTE .STK-MED ONE Stop: 05/03/16 11:51 Fentanyl (Sublimaze) 50 mcg IVPUSH Q5M PRN PRN Reason: Pain (severe 7-10) Stop: 05/04/16 14:40 Glycopyrrolate () 1 mg IVPUSH .STK-MED ONE Stop: 05/03/16 10:48 Hydromorphone HCl (Dilaudid) Confirm Administered Dose 2 mg .ROUTE .STK-MED ONE Stop: 05/03/16 12:19 Hydromorphone HCl (Dilaudid [employer] 6 Mg In Ns 30 Ml) 6 mg IV ASDIRECTED PRN; Protocol PRN Reason: Abdominal Pain Hydromorphone HCl (Dilaudid [employer] 6 Mg In Ns 30 Ml) 6 mg IV ASDIRECTED PRN; Protocol PRN Reason: Abdominal Pain Last Admin: 05/05/16 19:22 Dose: 6 mg Lactated Ringer's (Ringers, Lactated) 1,000 mls @ 125 mls/hr IV ASDIRECTED [facility] Last Admin: 05/03/16 10:04 Dose: 125 mls/hr Cefazolin Sodium/Dextrose 2 gm (/ Premix) 50 mls @ 100 mls/hr IV ONETIME ONE Stop: 04/17/16 12:19 Cefazolin Sodium/Dextrose 2 gm (/ Premix) 50 mls @ 100 mls/hr IV ONETIME ONE Stop: 05/02/16 11:21 Last Admin: 05/03/16 15:28 Dose: Not Given Lactated Ringer's (Ringers, Lactated) 1,000 mls @ 125 mls/hr IV ASDIRECTED [facility] Sodium Chloride (Normal Saline) Confirm Administered Dose 20 mls @ as directed .ROUTE .STK-MED ONE Stop: 05/03/16 10:43 Lactated Ringer's (Ringers, Lactated) 1,000 mls @ 125 mls/hr IV ASDIRECTED [facility] Last Admin: 05/03/16 23:25 Dose: 125 mls/hr Piperacillin Sod/Tazobactam (Sod 3.375 gm/ Sodium Chloride) 50 mls @ 100 mls/ hr IV Q8H [facility] Last Admin: 05/05/16 12:24 Dose: 100 mls/hr Pantoprazole Sodium 40 mg/ (Sodium Chloride) 10 mls @ 300 mls/hr IVPUSH DAILY [facility] Last Admin: 05/07/16 08:07 Dose: 300 mls/hr Potassium Chloride/Dextrose/Sod Cl (D5 1/2 Ns W/ 20 Meq/L Kcl) 1,000 mls @ 100 mls/hr IV ASDIRECTED [facility] Last Admin: 05/04/16 23:42 Dose: 100 mls/hr Magnesium Sulfate 4 gm/ Premix 100 mls @ 50 mls/hr IV ONETIME ONE Stop: 05/05/16 10:09 Last Admin: 05/05/16 09:04 Dose: 50 mls/hr Potassium Phosphate 9 mmole/ (Sodium Chloride) 253 mls @ 84.333 mls/hr IV ONETIME [facility] Last Admin: 05/05/16 13:35 Dose: 84.333 mls/hr Dextrose/Sodium Chloride (Dextrose 5%-1/2 Ns) 1,000 mls @ 100 mls/hr IV ASDIRECTED [facility] Last Admin: 05/06/16 23:31 Dose: 100 mls/hr Magnesium Sulfate 4 gm/ Premix 100 mls @ 50 mls/hr IV ONETIME ONE Stop: 05/06/16 10:00 Last Admin: 05/06/16 08:26 Dose: 50 mls/hr Potassium Phosphate 30 mmole/ (Sodium Chloride) 510 mls @ 102 mls/hr IV ONETIME [facility] Calcium Gluconate 1 gm/ Sodium (Chloride) 60 mls @ 120 mls/hr IV ONETIME [facility] Potassium Phosphate 30 mmole/ (Sodium Chloride) 510 mls @ 102 mls/hr IV ONETIME [facility] Calcium Gluconate 1 gm/ Sodium (Chloride) 60 mls @ 120 mls/hr IV ONETIME [facility] Potassium Phosphate 30 mmole/ (Sodium Chloride) 510 mls @ 102 mls/hr IV ONETIME [facility] Last Admin: 05/06/16 09:24 Dose: 102 mls/hr Lidocaine (Xylocaine-Mpf 2%) Confirm Administered Dose 5 ml .ROUTE .STK-MED ONE Stop: 05/03/16 09:53 Lisinopril (Prinivil) 10 mg PO DAILY [facility] Magnesium Chloride (Mag-64) 64 mg PO DAILY ONE Stop: 05/07/16 09:01 Last Admin: 05/07/16 10:08 Dose: 64 mg Metoprolol Tartrate (Lopressor) Confirm Administered Dose 5 mg .ROUTE .STK-MED ONE Stop: 05/03/16 14:09 Midazolam HCl (Versed 1 Mg/Ml) Confirm Administered Dose 2 mg .ROUTE .STK-MED ONE Stop: 05/03/16 09:54 Neostigmine Methylsulfate (Neostigmine) 5 mg IV .STK-MED ONE Stop: 05/03/16 11:58 Ondansetron HCl (Zofran) Confirm Administered Dose 4 mg .ROUTE .STK-MED ONE Stop: 05/03/16 09:54 Ondansetron HCl (Zofran) 4 mg IVPUSH ONETIME ONE Stop: 05/04/16 02:02 Last Admin: 05/04/16 02:22 Dose: 4 mg Phenylephrine HCl (Phenylephrine In Ns 100 Mcg/Ml) Confirm Administered Dose 1 mg .ROUTE .STK-MED ONE Stop: 05/03/16 10:54 Polyethylene Glycol (Miralax) 17 gm PO DAILY PRN PRN Reason: Constipation Potassium Phosphate (Potassium Phosphates) 3 mmole IV ONETIME ONE Stop: 05/05/16 08:16 Propofol (Diprivan 20 Ml) Confirm Administered Dose 200 mg .ROUTE .STK-MED ONE Stop: 05/03/16 09:53 Propofol (Diprivan 20 Ml) Confirm Administered Dose 200 mg .ROUTE .STK-MED ONE Stop: 05/03/16 13:42 Rocuronium [place] (Zemuron) Confirm Administered Dose 100 mg .ROUTE .STK-MED ONE Stop: 05/03/16 09:53 Sodium Chloride (Saline Flush) 10 ml FLUSH ASDIRECTED PRN PRN Reason: Keep Vein Open Sodium Chloride (Saline Flush) 2.5 ml FLUSH ASDIRECTED PRN PRN Reason: Keep Vein Open Sodium Phosphate (Neutra-Phos) 250 mg PO BID ONE Stop: 05/07/16 08:52 Last Admin: 05/07/16 10:07 Dose: 250 mg Sodium Phosphate (Neutra-Phos) 250 mg PO BID [facility] Stop: 05/07/16 21:30 Last Admin: 05/07/16 20:21 Dose: 250 mg Succinylcholine Chloride (Succinylcholine In Ns Pf) 200 mg IV .STK-MED ONE Stop: 05/03/16 11:04 Tiotropium [place] (Spiriva Handihaler) 18 mcg INH ONETIME ONE Stop: 05/03/16 14:25 Last Admin: 05/03/16 15:53 Dose: 1 cap - Exam General: Reports: alert, oriented HEENT: Reports: Pupils equal, Pupils reactive Lungs: Reports: Clear to auscultation, Normal respiratory effort Cardiovascular: Reports: Regular Rate, Regular Rhythm Abdomen: Reports: bowel sounds present, soft, no tenderness, no distension (Male) Exam: Normal inspection Extremities: Reports: no edema Skin: Reports: warm, dry, intact Wound/Incisions: Reports: healing well Neurological: Reports: no new focal deficit Psy/Mental Status: Reports: alert, normal affect, normal mood *Q Meaningful Use (DIS) - VTE *Q VTE Criteria *Q: - Stroke *Q Stroke Criteria *Q: - AMI *Q AMI Criteria *Q:
== END 2016-05-08 11:00 | disposition home or self-care (01) | DRG 354 ==
LOC: MW.SDS 08:27 → MW.ICU 14:20 → MW.MS 05-04 17:55
PROVIDERS: ADMIT Surgery; ATTEND Surgery
PROC: 0WUF0JZ Supplement Abdominal Wall with Synthetic Substitute, Open Approach (ICD-10-PCS; principal; 2016-05-03)
PROC: 0WUF0JZ Supplement Abdominal Wall with Synthetic Substitute, Open Approach (ICD-10-PCS; 2016-05-03)
PROC: 0D9670Z Drainage of Stomach with Drainage Device, Via Natural or Artificial Opening (ICD-10-PCS; 2016-05-03)
PROC: 0T2BX0Z Change Drainage Device in Bladder, External Approach (ICD-10-PCS; 2016-05-03)
DX: K42.9 Umbilical hernia without obstruction or gangrene (principal); K91.3 Postprocedural intestinal obstruction; K43.9 Ventral hernia without obstruction or gangrene; K91.0 Vomiting following gastrointestinal surgery; Y83.8 Other surgical procedures as the cause of abnormal reaction of the patient, or of later complication, without mention of misadventure at the time of the procedure; Y92.230 Patient room in hospital as the place of occurrence of the external cause; E83.42 Hypomagnesemia; E83.39 Other disorders of phosphorus metabolism; R39.11 Hesitancy of micturition; Z79.899 Other long term (current) drug therapy
CPT/HCPCS: 36415; 49560; 49568; 49585; J0690; J1170; J2250; J2405 ×2; J3010 ×2; J7120; 00832; 51703; 74000; 74000-26; 74176; 74176-26; 80048; 82962; 83735; 84100; 85025; 85027; 88304; 94640; 94664; 97161-GP; A9270-GY; C1781; C9113; J0360; J1200; J1644; J2543; J2704; J3475; J3480; J7040; J7042; J7050

== ENCOUNTER → 2016-06-20 | Outpatient (CLI) | payer MEDICARE, OTHER | LOC: MW.CHGS 08:00 | PROVIDERS: ATTEND Surgery | DX: Z98.890 Other specified postprocedural states (principal); Z87.19 Personal history of other diseases of the digestive system; K43.9 Ventral hernia without obstruction or gangrene ==

== ENCOUNTER 2017-03-20 13:11 | Emergency (ER) | payer MEDICARE, OTHER ==
[2017-03-20] MEDS ORDERED: Sodium Chloride 0.9% 2.5 ML Syringe FLUSH PRN (13:33)
[2017-03-20] MEDS ORDERED: Sodium Chloride 0.9% 10 ML Syringe FLUSH PRN (13:33)
[2017-03-20] MEDS ORDERED: Albuterol/Ipratropium 3.0-0.5 MG/3 ML Neb Soln NEB ONE ×2 (13:33→15:03)
--- NOTE | 2017-03-20 14:36 | CR ---
PA and lateral chest Clinical history: Shortness of breath Comparison: Prior chest x-ray May 05, 2016 Findings: Since the prior examination aeration at both lung bases has improved with minor subsegmenta l scarring at the left base. Atelectasis at the right base has resolved. Vessels are within normal li mits. Cardiac mediastinum is unchanged. Impression: Improved aeration with minor left base scarring since prior exam
[2017-03-20 14:42] LABS: CHLORIDE,CL 100 mmol/L (98-110); SODIUM,NA 138 mmol/L (136-146)
[2017-03-20] MEDS ORDERED: methylPREDNISolone Sodium Succinate 125 MG/2 ML SDV IVPUSH ONE (15:03)
[2017-03-20] MEDS ORDERED: cefTRIAXone 1 GM in Premix Bag 1 BAG IV ONE (15:04)
--- NOTE | 2017-03-20 15:27 | EDM.PDOC ---
ED HPI GENERAL MEDICAL PROBLEM - General Chief Complaint: Respiratory Problem Stated Complaint: COUGH Time Seen by Provider: 03/20/17 13:41 Source of Information: Reports: Patient History Limitations: Reports: No Limitations - History of Present Illness INITIAL COMMENTS - FREE TEXT/NARRATIVE: HISTORY AND PHYSICAL: [56-year-old male presents with increased shortness of breath and coughing History of Present Illness: [] Review of Systems: As per history of present illness and below otherwise all systems reviewed and negative. Past medical history: As per history of present illness and as reviewed below otherwise noncontributory. Surgical history: As per history of present illness and as reviewed below otherwise noncontributory. Social history: No reported history of drug or alcohol abuse. Family history: As per history of present illness and as reviewed below otherwise noncontributory. Physical exam: Alert and oriented gentleman who answers questions appropriately he has oxygen on at home he is somewhat short of breath with full sentences HEENT: Atraumatic, normocehpalic, pupils reactive, negative for conjunctival pallor or scleral icterus, mucous membranes moist, throat clear, neck supple, nontender, trachea midline. Lungs: Crackles throughout on auscultation, breath sounds equal bilaterally diminished, chest non tender. Heart: S1S2, regular, negative for clicks, rubs, or JVD. Abdomen: Soft, nondistended, nontender. Negative for masses or hepatossplenmegaly. Negative for costovertebral tenderness. Pelvis: Stable nontender. Genitourinary: Deferred. Rectal: Deferred Extremities: Atraumatic, negative for cords or calf pain. Neurovascular unremarkable. Neuro: Awake, alert, oriented. Cranial nerves II through XII unremarkable. Cerebellum unremarkable. Motor and sensory unremarkable throughout. Exam nonfocal. Diagnostics: [Influenza CBC CMP] Therapeutics: []DuoNeb Rocephin Solu-Medrol IV Impression: [Upper respiratory infection] Exacerbation COPD Plan: [Discharged to home Cephalexin po follow up with your PCP in 2 days ] Definitive disposition and diagnosis as appropriate pending reevaluation and review of above. Onset: Gradual Duration: Getting Worse Location: Reports: Chest Severity: Moderate Improves with: Reports: None Worsens with: Reports: None Generalized Pain Score (Numeric/FACES): 2 - Related Data Allergies Allergy/AdvReac Type Severity Reaction Status Date / Time No Known Allergies Allergy Unverified 03/20/17 13:28 Home Meds: Home Meds Albuterol Sulfate [Proair Hfa] 2 puff INH ASDIRECTED PRN 04/06/16 [History] Budesonide/Formoterol [Symbicort 160-4.5 MCG] 2 puff INH BID 04/06/16 [History] Lisinopril/Hydrochlorothiazide [Lisinopril-Hctz 20-25 mg Tab] 1 tab PO DAILY [History] Tiotropium [Spiriva HandiHaler] 1 inhalation INH DAILY 04/06/16 [History] Cephalexin [IJD: Cephalexin] 500 mg PO .EVERY 8 HOURS #20 cap 03/20/17 [Rx] Roflumilast [Daliresp] 500 mcg PO DAILY 03/20/17 [History] Past Medical History HEENT History: Reports: Other (See Below) Other HEENT History: wears glasses Cardiovascular History: Reports: High Cholesterol, Hypertension Respiratory History: Reports: COPD Other Respiratory History: uses oxygen as needed at bedtime, hard to climb stairs, can walk 2-3 blocks Gastrointestinal History: Reports: Other (See Below) Other Gastrointestinal History: occasional heartburn Endocrine/Metabolic History: Reports: Obesity/BMI 30+ Hematologic History: Reports: Other (See Below) Other Hematologic History: thrombo cytopenia - Past Surgical History Head Surgeries/Procedures: Reports: None HEENT Surgical History: Reports: Other (See Below) GI Surgical History: Reports: Colonoscopy, Hernia, Inguinal Social & Family History - Tobacco Use Smoking Status *Q: Former Smoker Years of Tobacco use: 45 Used Tobacco, but Quit: Yes Month Tobacco Last Used: 2014? Second Hand Smoke Exposure: No - Caffeine Use Caffeine Use: Reports: None - Recreational Drug Use Recreational Drug Use: No Drug Use in Last 12 Months: No ED ROS GENERAL - Review of Systems Review Of Systems: See Below ED EXAM, GENERAL - Physical Exam Exam: See Below (See dictation) Course - Vital Signs Last Recorded V/S: Last Vital Signs Temp 36.8 C 03/20/17 13:34 Pulse 97 03/20/17 15:01 Resp 18 03/20/17 15:01 BP 128/90 03/20/17 15:01 Pulse Ox 90 L 03/20/17 15:01 - Orders/Labs/Meds Orders: Active Orders 24 hr Category Date Time Status RT Aerosol Therapy [RC] ASDIRECTED Care 03/20/17 13:33 Active RT Aerosol Therapy [RC] ASDIRECTED Care 03/20/17 15:03 Active Sodium Chloride 0.9% [Saline Flush] Med 03/20/17 13:33 Active 10 ml FLUSH ASDIRECTED PRN Sodium Chloride 0.9% [Saline Flush] Med 03/20/17 13:33 Active 2.5 ml FLUSH ASDIRECTED PRN cefTRIAXone [Rocephin in Dextrose,Iso-Osm 1 GM/50 ML] 1 Med 03/20/17 15:04 Active gm Premix Bag 1 bag IV ONETIME Saline Lock Insert [OM.PC] Stat Oth 03/20/17 13:32 Ordered Medication Orders Ceftriaxone Sodium/Dextrose 1 (gm/ Premix) 50 mls @ 100 mls/hr IV ONETIME ONE Stop: 03/20/17 15:33 Last Admin: 03/20/17 15:15 Dose: 100 mls/hr Sodium Chloride (Saline Flush) 10 ml FLUSH ASDIRECTED PRN PRN Reason: Keep Vein Open Sodium Chloride (Saline Flush) 2.5 ml FLUSH ASDIRECTED PRN PRN Reason: Keep Vein Open Labs: Laboratory Tests 03/20/17 03/20/17 03/20/17 Range/Units 13:43 13:54 13:54 WBC 12.31 H (4.0-11.0) K/uL RBC 4.32 L (4.50-5.90) M/uL Hgb 13.5 (13.0-17.0) g/dL Hct 40.3 (38.0-50.0) % MCV 93.3 (80.0-98.0) fL MCH 31.3 (27.0-32.0) pg MCHC 33.5 (31.0-37.0) g/dL RDW Std Deviation 47.6 (28.0-62.0) fl RDW Coeff of [place] 14 (11.0-15.0) % Plt Count 276 (150-400) K/uL MPV 11.60 (7.40-12.00) fL Neut % (Auto) 80.6 H (48.0-80.0) % Lymph % (Auto) 9.6 L (16.0-40.0) % [place] % (Auto) 8.6 (0.0-15.0) % Eos % (Auto) 1.0 (0.0-7.0) % Baso % (Auto) 0.2 (0.0-1.5) % Neut # (Auto) 9.9 H (1.4-5.7) K/uL Lymph # (Auto) 1.2 (0.6-2.4) K/uL [place] # (Auto) 1.1 H (0.0-0.8) K/uL Eos # (Auto) 0.1 (0.0-0.7) K/uL Baso # (Auto) 0.0 (0.0-0.1) K/uL Nucleated RBC % 0.0 /100WBC Nucleated RBCs # 0 K/uL Sodium 138 (136-146) mmol/L Potassium 3.8 (3.5-5.1) mmol/L Chloride 100 (98-110) mmol/L Carbon Dioxide 28 (21-31) mmol/L BUN 11 (6.0-23.0) mg/dL Creatinine 1.0 (0.6-1.5) mg/dL Est Cr Clr Drug Dosing TNP Estimated GFR (MDRD) > 60.0 ml/min Glucose 125 H (60-110) mg/dL Calcium 9.5 (8.8-10.8) mg/dL Total Bilirubin 0.7 (0.1-1.5) mg/dL AST 18 (5-40) IU/L ALT 26 (8-54) IU/L Alkaline Phosphatase 58 (40-150) Troponin I < 0.10 (0.0-0.29) NG/ML Total Protein 7.5 (6.0-8.0) g/dL Albumin 3.7 (3.4-4.8) g/dL Globulin 3.8 H (2.0-3.5) g/dL Albumin/Globulin Ratio 1.0 L (1.3-2.8) Urine Color YELLOW Urine Appearance CLEAR Urine pH 7.0 (5.0-8.0) Ur Specific [place] 1.010 (1.001-1.035) Urine Protein NEGATIVE (NEGATIVE) mg/dL Urine Glucose (UA) NEGATIVE (NEGATIVE) mg/dL Urine Ketones NEGATIVE (NEGATIVE) mg/dL Urine Occult Blood NEGATIVE (NEGATIVE) Urine Nitrite NEGATIVE (NEGATIVE) Urine Bilirubin NEGATIVE (NEGATIVE) Urine Urobilinogen 1.0 (<2.0) EU/dL Ur Leukocyte Esterase TRACE (NEGATIVE) Urine RBC 0-1 (0-2/HPF) Urine WBC 0-1 (0-5/HPF) Ur Epithelial Cells RARE (NONE-FEW) Urine Bacteria RARE (NEGATIVE) Meds: Medications Generic Name Dose Route Start Last Admin Trade Name Freq PRN Reason Stop Dose Admin Ceftriaxone Sodium/Dextrose 1 50 mls @ 100 mls/hr 03/20/17 15:04 03/20/17 15: 15 gm/ Premix IV 03/20/17 15:33 100 mls/hr ONETIME ONE Administration Sodium Chloride 10 ml 03/20/17 13:33 Saline Flush FLUSH ASDIRECTED PRN Keep Vein Open Sodium Chloride 2.5 ml 03/20/17 13:33 Saline Flush FLUSH ASDIRECTED PRN Keep Vein Open Discontinued Medications Generic Name Dose Route Start Last Admin Trade Name Freq PRN Reason Stop Dose Admin Albuterol/Ipratropium 3 ml 03/20/17 13:33 03/20/17 13:37 Duoneb 3.0-0.5 Mg/3 Ml NEB 03/20/17 13:34 3 ml ONETIME ONE Administration Albuterol/Ipratropium 3 ml 03/20/17 15:03 03/20/17 15:17 Duoneb 3.0-0.5 Mg/3 Ml NEB 03/20/17 15:04 3 ml ONETIME ONE Administration Methylprednisolone Sodium Succinate 125 mg 03/20/17 15:03 03/20/17 15:15 Solu-Medrol IVPUSH 03/20/17 15:04 125 mg ONETIME ONE Administration Departure - Departure Time of Disposition: 15:25 Disposition: Home, Self-Care 01 Condition: Good Clinical Impression: COPD with exacerbation URI (upper respiratory infection) Qualifiers: URI type: unspecified URI Qualified Code(s): J06.9 - Acute upper respiratory infection, unspecified - Discharge Information Prescriptions: Cephalexin [IJD: Cephalexin] 500 mg PO .EVERY 8 HOURS #20 cap Instructions: Shortness of Breath, [id number], Upper Respiratory Infection, Adult, [id number], Chronic Obstructive Pulmonary Disease Exacerbation, Easy-to -Read Referrals: Torin Miles MD [Primary Care Provider] - - My Orders Last 24 Hours: My Active Orders 03/20/17 13:32 Saline Lock Insert [OM.PC] Stat 03/20/17 13:33 RT Aerosol Therapy [RC] ASDIRECTED Sodium Chloride 0.9% [Saline Flush] 10 ml FLUSH ASDIRECTED PRN Sodium Chloride 0.9% [Saline Flush] 2.5 ml FLUSH ASDIRECTED PRN 03/20/17 15:03 RT Aerosol Therapy [RC] ASDIRECTED 03/20/17 15:04 cefTRIAXone [Rocephin in Dextrose,Iso-Osm 1 GM/50 ML] 1 gm Premix Bag 1 bag IV ONETIME - Assessment/Plan Last 24 Hours: My Active Orders 03/20/17 13:32 Saline Lock Insert [OM.PC] Stat 03/20/17 13:33 RT Aerosol Therapy [RC] ASDIRECTED Sodium Chloride 0.9% [Saline Flush] 10 ml FLUSH ASDIRECTED PRN Sodium Chloride 0.9% [Saline Flush] 2.5 ml FLUSH ASDIRECTED PRN 03/20/17 15:03 RT Aerosol Therapy [RC] ASDIRECTED 03/20/17 15:04 cefTRIAXone [Rocephin in Dextrose,Iso-Osm 1 GM/50 ML] 1 gm Premix Bag 1 bag IV ONETIME
[2017-03-20 16:06] VITALS: BP 105/63
== END 2017-03-20 15:52 | disposition home or self-care (01) ==
LOC: MW.ED 13:11
DX: J44.1 Chronic obstructive pulmonary disease with (acute) exacerbation (principal); I10 Essential (primary) hypertension; J06.9 Acute upper respiratory infection, unspecified; E78.00 Pure hypercholesterolemia, unspecified; Z79.899 Other long term (current) drug therapy; Z87.891 Personal history of nicotine dependence; Z23 Encounter for immunization
CPT/HCPCS: 36415; 71046; 80053; 81001; 84484; 85025; 87804; 90471; 96365; 96375; 99284; J0696; J2930

== ENCOUNTER 2018-05-03 12:13 | Emergency (ER) | payer MEDICARE, OTHER ==
[2018-05-03] MEDS ORDERED: Sodium Chloride 0.9% 2.5 ML Syringe FLUSH PRN (12:20)
[2018-05-03] MEDS ORDERED: Albuterol/Ipratropium 3.0-0.5 MG/3 ML Neb Soln NEB ONE (12:20)
[2018-05-03] MEDS ORDERED: Sodium Chloride 0.9% 10 ML Syringe FLUSH PRN (12:20)
[2018-05-03] MEDS ORDERED: methylPREDNISolone Sodium Succinate 125 MG/2 ML SDV IVPUSH ONE (12:22)
--- NOTE | 2018-05-03 12:22 | EDM.PDOC ---
ED HPI GENERAL MEDICAL PROBLEM - General Chief Complaint: Cardiovascular Problem Stated Complaint: pain in rib Time Seen by Provider: 05/03/18 12:17 Source of Information: Reports: Patient History Limitations: Reports: No Limitations - History of Present Illness INITIAL COMMENTS - FREE TEXT/NARRATIVE: HISTORY AND PHYSICAL: History of present illness: Patient is a 67-year-old male who presents to the emergency room today with complaints of left lower chest wall pain. He states on Sunday he had slipped and fallen on the ice landing on his left side of his chest area and he happened to have his inhaler and his front chest pocket which had hit his chest wall. Denies hitting his head or any loss of consciousness. He states since that time he has been "trying to take it easy" but has not felt any relief with the supportive care measures at home. He has had increased shortness of breath. He denies any fever, chills, cough, headache, change in vision or diaphoresis. Denies any abdominal pain, nausea, vomiting, diarrhea, constipation or dysuria. He states he has been eating and drinking appropriately. Review of systems: As per history of present illness and below otherwise all systems reviewed and negative. Past medical history: As per history of present illness and as reviewed below otherwise noncontributory. Surgical history: As per history of present illness and as reviewed below otherwise noncontributory. Social history: See social history for further information Family history: As per history of present illness and as reviewed below otherwise noncontributory. Physical exam: General: Well-developed and well-nourished 67-year-old male. Alert and oriented. Nontoxic appearing and in no acute distress. HEENT: Atraumatic, normocephalic, pupils equal and reactive bilaterally, negative for conjunctival pallor or scleral icterus, mucous membranes moist, TMs normal bilaterally, throat clear, neck supple, nontender, trachea midline. No drooling or trismus noted. No meningeal signs. No hot potato voice noted. Lungs: Difficult to hear due to body habitus, fine expiratory wheezing noted to the right posterior base otherwise diminished. Breath sounds equal bilaterally, chest nontender. Heart: S1S2, regular rate and rhythm without overt murmur Abdomen: Soft, nondistended, obese, nontender. Negative for masses or hepatosplenomegaly. Negative for costovertebral tenderness. Pelvis: Stable nontender. Genitourinary: Deferred. Rectal: Deferred. Skin: Intact, warm, dry. No lesions or rashes noted. Extremities: Atraumatic, moves all extremities per self without difficulty or deficits, trace edema bilateral lower extremities. He is negative for cords or calf pain. Neurovascular unremarkable. Neuro: Awake, alert, oriented. Cranial nerves II through XII unremarkable. Cerebellum unremarkable. Motor and sensory unremarkable throughout. Exam nonfocal. Notes: Oxygen saturation on room air was 79%. Nursing staff placed him on 4 L per nasal cannula and was able to get him up to 92%. Patient does have a history of COPD and does take inhalers for management of this. He states usually sats around 89% on room air. He states he does use hot oxygen at home routinely, mainly at nighttime. He states he has not used this at all today and does contribute his low oxygen saturation to this. Chest Xray shows no acute findings. Lab work is unremarkable. EKG shows no acute findings. Vital signs have been stable. I did offer patient admission which he declines. He would like to be discharged home with close follow-up with his primary care provider. He is aware of the risks of being discharged home with low oxygen saturation and his current complaints. He states that he will use his oxygen at home and continue to monitor this. States he usually uses this, but hasn't in the past day. Signs and symptoms that would prompt him to the emergency room were reviewed and discussed. We'll place patient on Z-[place] and Medrol Dosepak as he does have a history of COPD. Education on incentive spirometer was reviewed. Supportive care measures were reviewed and discussed. Voices understanding and is agreeable to plan of care. Denies any further questions or concerns at this time. Diagnostics: CBC, CMP, EKG, one view chest, Therapeutics: IV Solu-Medrol, DuoNeb Prescription: Zpack, Medrol Dosepak, Tramadol (#15) Impression: Hypoxia Left Rib Injury Plan: 1. Please use the incentive spirometer as discussed, every 2-3 hours while awake. Splinting for taking in deep breathes routinely to avoid pneumonia. 2. Take the medications as prescribed. Continue using your home medications as we discussed. Including urinary nebulizer solution and inhalers. Use your home oxygen as directed. 3. Follow-up with your primary care provider as we discussed. Return to the ED as needed and as discussed. Definitive disposition and diagnosis as appropriate pending reevaluation and review of above. Left Chest Pain Score (Numeric/FACES): 7 - Related Data Allergies Allergy/AdvReac Type Severity Reaction Status Date / Time No Known Allergies Allergy Unverified 05/03/18 12:20 Home Meds: Home Meds Albuterol Sulfate [Proair Hfa] 2 puff INH ASDIRECTED PRN 04/06/16 [History] Budesonide/Formoterol [Symbicort 160-4.5 MCG] 2 puff INH BID 04/06/16 [History] Lisinopril/Hydrochlorothiazide [Lisinopril-Hctz 20-25 mg Tab] 1 tab PO DAILY [History] Tiotropium [Spiriva HandiHaler] 1 inhalation INH DAILY 04/06/16 [History] Cephalexin [IJD: Cephalexin] 500 mg PO .EVERY 8 HOURS #20 cap 03/20/17 [Rx] Roflumilast [Daliresp] 500 mcg PO DAILY 03/20/17 [History] Past Medical History HEENT History: Reports: Other (See Below) Other HEENT History: wears glasses Cardiovascular History: Reports: High Cholesterol, Hypertension Respiratory History: Reports: COPD Other Respiratory History: uses oxygen as needed at bedtime, hard to climb stairs, can walk 2-3 blocks Gastrointestinal History: Reports: Other (See Below) Other Gastrointestinal History: occasional heartburn Endocrine/Metabolic History: Reports: Obesity/BMI 30+ Hematologic History: Reports: Other (See Below) Other Hematologic History: thrombo cytopenia - Past Surgical History Head Surgeries/Procedures: Reports: None HEENT Surgical History: Reports: Other (See Below) GI Surgical History: Reports: Colonoscopy, Hernia, Inguinal Social & Family History - Caffeine Use Caffeine Use: Reports: None ED ROS GENERAL - Review of Systems Review Of Systems: ROS reveals no pertinent complaints other than HPI. ED EXAM, GENERAL - Physical Exam Exam: See Below (See dictation) Course - Vital Signs Last Recorded V/S: Last Vital Signs Temp 97.1 F 05/03/18 12:23 Pulse 100 05/03/18 13:50 Resp 18 05/03/18 13:50 BP 114/74 05/03/18 13:50 Pulse Ox 96 05/03/18 13:50 - Orders/Labs/Meds Orders: Active Orders 24 hr Category Date Time Status EKG Documentation Completion [RC] STAT Care 05/03/18 12:17 Active RT Aerosol Therapy [RC] ASDIRECTED Care 05/03/18 12:20 Active Saline Lock Insert [OM.PC] Stat Oth 05/03/18 12:20 Ordered Labs: Laboratory Tests 05/03/18 05/03/18 Range/Units 12:30 12:30 WBC 8.80 (4.0-11.0) K/uL RBC 4.78 (4.50-5.90) M/uL Hgb 15.0 (13.0-17.0) g/dL Hct 45.3 (38.0-50.0) % MCV 94.8 (80.0-98.0) fL MCH 31.4 (27.0-32.0) pg MCHC 33.1 (31.0-37.0) g/dL RDW Std Deviation 49.9 (28.0-62.0) fl RDW Coeff of Kennedy 14 (11.0-15.0) % Plt Count 200 (150-400) K/uL MPV 11.30 (7.40-12.00) fL Neut % (Auto) 72.9 (48.0-80.0) % Lymph % (Auto) 15.2 L (16.0-40.0) % Boundary % (Auto) 9.2 (0.0-15.0) % Eos % (Auto) 2.4 (0.0-7.0) % Baso % (Auto) 0.3 (0.0-1.5) % Neut # (Auto) 6.4 H (1.4-5.7) K/uL Lymph # (Auto) 1.3 (0.6-2.4) K/uL Boundary # (Auto) 0.8 (0.0-0.8) K/uL Eos # (Auto) 0.2 (0.0-0.7) K/uL Baso # (Auto) 0.0 (0.0-0.1) K/uL Nucleated RBC % 0.0 /100WBC Nucleated RBCs # 0 K/uL Sodium 138 (136-148) mmol/L Potassium 4.2 (3.5-5.1) mmol/L Chloride 101 (98-107) mmol/L Carbon Dioxide 28.9 (21.0-32.0) mmol/L BUN 18 (7.0-18.0) mg/dL Creatinine 1.2 (0.8-1.3) mg/dL Est Cr Clr Drug Dosing 57.00 mL/min Estimated GFR (MDRD) > 60.0 ml/min Glucose 97 (74-106) mg/dL Calcium 9.0 (8.5-10.1) mg/dL Total Bilirubin 0.8 (0.2-1.0) mg/dL AST 12 L (15-37) IU/L ALT 23 (14-63) IU/L Alkaline Phosphatase 65 (46-116) U/L Troponin I < 0.050 (0.000-0.056) ng/mL Total Protein 7.9 (6.4-8.2) g/dL Albumin 3.5 (3.4-5.0) g/dL Globulin 4.4 H (2.6-4.0) g/dL Albumin/Globulin Ratio 0.8 L (0.9-1.6) Meds: Medications Discontinued Medications Generic Name Dose Route Start Last Admin Trade Name Freq PRN Reason Stop Dose Admin Albuterol/Ipratropium 3 ml 05/03/18 12:20 05/03/18 12:29 Duoneb 3.0-0.5 Mg/3 Ml NEB 05/03/18 12:21 3 ml ONETIME ONE Administration Methylprednisolone Sodium Succinate 125 mg 05/03/18 12:22 05/03/18 12:39 Solu-Medrol IVPUSH 05/03/18 12:23 125 mg ONETIME ONE Administration Sodium Chloride 10 ml 05/03/18 12:20 05/03/18 12:39 Saline Flush FLUSH 10 ml ASDIRECTED PRN Administration Keep Vein Open Sodium Chloride 2.5 ml 05/03/18 12:20 05/03/18 12:39 Saline Flush FLUSH 2.5 ml ASDIRECTED PRN Administration Keep Vein Open Departure - Departure Time of Disposition: 13:18 Disposition: Home, Self-Care 01 Clinical Impression: Rib injury, Hypoxia Instructions: Chest Contusion, Adult, [id number] Referrals: PCP,Unknown [Primary Care Provider] - Forms: ED Department Discharge Additional Instructions: The following information is given to patients seen in the emergency department who are being discharged to home. This information is to outline your options for follow-up care. We provide all patients seen in our emergency department with a follow-up referral. The need for follow-up, as well as the timing and circumstances, are variable depending upon the specifics of your emergency department visit. If you don't have a primary care physician on staff, we will provide you with a referral. We always advise you to contact your personal physician following an emergency department visit to inform them of the circumstance of the visit and for follow-up with them and/or the need for any referrals to a consulting specialist. The emergency department will also refer you to a specialist when appropriate. This referral assures that you have the opportunity for follow-up care with a specialist. All of these measure are taken in an effort to provide you with optimal care, which includes your follow-up. Under all circumstances we always encourage you to contact your private physician who remains a resource for coordinating your care. When calling for follow-up care, please make the office aware that this follow-up is from your recent emergency room visit. If for any reason you are refused follow-up, please contact the [facility] Emergency Department at and asked to speak to the emergency department charge nurse. [facility] [address] [place] [id number] [place] [address] 1. Please use the incentive spirometer as discussed, every 2-3 hours while awake. Splinting chest well for taking in deep breathes routinely to avoid pneumonia. 2. Take the medications as prescribed. Continue using your home medications as we discussed. Including urinary nebulizer solution and inhalers. Use your home oxygen as directed. 3. Follow-up with your primary care provider as we discussed. Return to the ED as needed and as discussed. - My Orders Last 24 Hours: My Active Orders 05/03/18 12:17 EKG Documentation Completion [RC] STAT 05/03/18 12:20 RT Aerosol Therapy [RC] ASDIRECTED Saline Lock Insert [OM.PC] Stat - Assessment/Plan Last 24 Hours: My Active Orders 05/03/18 12:17 EKG Documentation Completion [RC] STAT 05/03/18 12:20 RT Aerosol Therapy [RC] ASDIRECTED Saline Lock Insert [OM.PC] Stat
--- NOTE | 2018-05-03 12:41 | CR ---
EXAMINATION: Portable chest radiograph. HISTORY: Chest pain. Comparison: 03/20/2017. FINDINGS: The trachea is midline. The cardiomediastinal silhouette is within normal limits. No pulmonary infiltrates, effusions or pneumothorax. Mild interstitial prominence and chronic left basilar scarring. Osseous structures appear unremarkable. IMPRESSION: No acute cardiopulmonary process.
[2018-05-03 13:05] LABS: CHLORIDE,CL 101 mmol/L (98-107); SODIUM,NA 138 mmol/L (136-148)
[2018-05-03 14:08] VITALS: BP 114/74
== END 2018-05-03 13:50 | disposition home or self-care (01) ==
LOC: MW.ED 12:13
DX: R09.02 Hypoxemia (principal); S29.9XXA Unspecified injury of thorax, initial encounter; W00.0XXA Fall on same level due to ice and snow, initial encounter
CPT/HCPCS: 71045; 80053; 84484; 85025; 93005; 94640; 96374; 99284; J2930; J7620-GY

== ENCOUNTER 2020-12-05 07:43 | Emergency (ER) | payer MEDICARE, OTHER ==
--- NOTE | 2020-12-05 07:44 | EDM.PDOC ---
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 Patient notes last bowel movement 2 or 3 days ago. He has tried Dulcolax and has also tried milk of magnesia without relief of constipation. Patient notes that he was told to take Dulcolax preventative with his opioid therapy but was not taking it because he had never struggled with constipation. He denies any associated nausea, vomiting, abdominal pain. He just feels very bloated and feels like he needs to defecate but is unable to. - Related Data Allergies Allergy/AdvReac Type Severity Reaction Status Date / Time No Known Allergies Allergy Unverified 05/03/18 12:20 Home Meds: Home Meds Albuterol Sulfate [Proair Hfa] 2 puff INH ASDIRECTED PRN 04/06/16 [History] Budesonide/Formoterol [Symbicort 160-4.5 MCG] 2 puff INH BID 04/06/16 [History] Lisinopril/Hydrochlorothiazide [Lisinopril-Hctz 20-25 mg Tab] 1 tab PO DAILY 04/06/16 [History] Tiotropium [Spiriva HandiHaler] 1 inhalation INH DAILY 04/06/16 [History] Roflumilast [Daliresp] 500 mcg PO DAILY 03/20/17 [History] Lactulose 20 gm PO BID 7 Days #1 bottle 12/05/20 [Rx] Past Medical History HEENT History: Reports: Other (See Below) Other HEENT History: wears glasses Cardiovascular History: Reports: High Cholesterol, Hypertension Respiratory History: Reports: COPD Other Respiratory History: uses oxygen as needed at bedtime, hard to climb stairs, can walk 2-3 blocks Gastrointestinal History: Reports: Other (See Below) Other Gastrointestinal History: occasional heartburn Endocrine/Metabolic History: Reports: Obesity/BMI 30+ Hematologic History: Reports: Other (See Below) Other Hematologic History: thrombo cytopenia - Infectious Disease History Infectious Disease History: Reports: None - Past Surgical History Head Surgeries/Procedures: Reports: None HEENT Surgical History: Reports: Other (See Below) GI Surgical History: Reports: Colonoscopy, Hernia, Inguinal Social & Family History - Family History Family Medical History: No Pertinent Family History - Caffeine Use Caffeine Use: Reports: None ED ROS GENERAL - Review of Systems Review Of Systems: Comprehensive ROS is negative, except as noted in HPI. ED EXAM, GENERAL - Physical Exam Exam: See Below Exam Limited By: No Limitations General Appearance: Alert, WD/WN, No Apparent Distress Ears: Hearing Grossly Normal Throat/Mouth: Normal Voice, No Airway Compromise Head: Atraumatic, Normocephalic Respiratory/Chest: No Respiratory Distress, Lungs Clear, Normal Breath Sounds, No Accessory Muscle Use Cardiovascular: Normal Peripheral Pulses, Regular Rate, Rhythm GI/Abdominal: Soft, Non-Tender, Distended Neurological: Alert, Normal Cognition, Normal Gait Psychiatric: Normal Affect, Normal Mood Skin Exam: Warm, Dry, Intact, Normal Color Course - Vital Signs Last Recorded V/S: Last Vital Signs Temp 96.8 F L 12/05/20 08:05 Pulse 75 12/05/20 08:05 Resp 22 H 12/05/20 08:05 BP 125/69 12/05/20 08:05 Pulse Ox 89 L 12/05/20 08:05 - Orders/Labs/Meds Orders: Active Orders 24 hr Category Date Time Status Enema [RC] ASDIRECTED Care 12/05/20 08:12 Active Abdomen Series w Chest 1V [CR] Stat Exams 12/05/20 08:09 Taken Meds: Medications Discontinued Medications Generic Name Dose Route Start Last Admin Trade Name Freq PRN Reason Stop Dose Admin Magnesium Citrate 240 ml 12/05/20 08:10 12/05/20 08:47 Magnesium Citrate Solution 296 Ml Bottle PO 12/05/20 08:11 240 ml ONETIME ONE Administration - Re-Assessments/Exams Free Text/Narrative Re-Assessment/Exam: 12/05/20 08:13 Patient presents with constipation. Low suspicion obstruction. Will get acute abdomen series but will defer CT imaging at this time. Will trial enema, mag nesium citrate. 12/05/20 09:06 I do not see any signs of obstruction on x-ray imaging. Patient does have a large stool bolus consistent with fecal impaction. I discussed this with patient at length and offered manual disimpaction, however, patient would like to attempt this at home himself. I did describe the procedure and he is of sound mind to make this decision and attempt manual disimpaction at home. Return precautions were discussed at length. Patient understands. Departure - Departure Time of Disposition: 09:07 Disposition: Home, Self-Care 01 Condition: Good Clinical Impression: Fecal impaction Constipation Qualifiers: Constipation type: unspecified constipation type Qualified Code(s): K59.00 - Constipation, unspecified - Discharge Information Prescriptions: Lactulose 20 gm PO BID 7 Days #1 bottle Instructions: Fecal Impaction, Constipation, Adult Referrals: Torin Miles MD [Primary Care Provider] - Additional Instructions: Your x-ray imaging is consistent with a fecal impaction. We did discuss manual disimpaction at home. If you are unsuccessful then please come back to the emergency department we can assist. I did send a powerful laxative to [facility] that I had like you to take for the next week. Please discuss with y our cancer doctor a stool regimen. It is often necessary to be on a stool softener throughout the duration of your opioid therapy to prevent this from happening again. The following information is given to patients seen in the emergency department who are being discharged to home. This information is to outline your options for follow-up care. We provide all patients seen in our emergency department with a follow-up referral. The need for follow-up, as well as the timing and circumstances, are variable depending upon the specifics of your emergency department visit. If you don't have a primary care physician on staff, we will provide you with a referral. We always advise you to contact your personal physician following an emergency department visit to inform them of the circumstance of the visit and for follow-up with them and/or the need for any referrals to a consulting specialist. The emergency department will also refer you to a specialist when appropriate. This referral assures that you have the opportunity for follow-up care with a specialist. All of these measure are taken in an effort to provide you with optimal care, which includes your follow-up. Under all circumstances we always encourage you to contact your private physician who remains a resource for coordinating your care. When calling for follow-up care, please make the office aware that this follow-up is from your recent emergency room visit. If for any reason you are refused follow-up, please contact the [facility] Emergency Department at and asked to speak to the emergency department charge nurse. Please follow up with your primary care physician. If you do not have a primary care physician, see below: [facility] [address] [place] [address] [id number] [facility] [address] [place], [place] [address] [facility] [address] [place] [id number] Sepsis Event Note (ED) - Focused Exam Vital Signs: Vital Signs Temp Pulse Resp BP Pulse Ox 12/05/20 08:05 96.8 F L 75 22 H 125/69 89 L - My Orders Last 24 Hours: My Active Orders 12/05/20 08:09 Abdomen Series w Chest 1V [CR] Stat 12/05/20 08:12 Enema [RC] ASDIRECTED - Assessment/Plan Last 24 Hours: My Active Orders 12/05/20 08:09 Abdomen Series w Chest 1V [CR] Stat 12/05/20 08:12 Enema [RC] ASDIRECTED
[2020-12-05] MEDS ORDERED: Magnesium Citrate Solution 296 ML Bottle PO ONE (08:10)
[2020-12-05 09:25] VITALS: BP 131/57; PULSE 74
--- NOTE | 2020-12-05 09:46 | CR ---
INDICATION: Constipation. TECHNIQUE: Flat and upright views the abdomen and pelvis. A PA chest x-ray was also included. COMPARISON: May 04, 2016. FINDINGS: Bibasilar fibrosis or minor atelectasis. Minor fibrosis or pleural thickening superior lateral right upper lobe of the lung. Overall heart size is normal. Bilateral rib fractures. No free air. Nonspecific bowel gas pattern without obstruction or ileus. No urinary tract calculi identified. IMPRESSION: 1. No free air, bowel obstruction, or ileus. 2. Chronic changes in the chest. Dictated by Barrera Michel MD @ 12/05/2020 9:44:49 AM (Electronically Signed)
== END 2020-12-05 09:18 | disposition home or self-care (01) ==
LOC: MW.ED 07:43
DX: K56.41 Fecal impaction (principal); E78.00 Pure hypercholesterolemia, unspecified; I10 Essential (primary) hypertension; J44.9 Chronic obstructive pulmonary disease, unspecified; E66.9 Obesity, unspecified; Z68.30 Body mass index [BMI] 30.0-30.9, adult; Z79.899 Other long term (current) drug therapy
CPT/HCPCS: 74022; 99283; A9270

== ENCOUNTER 2022-06-11 15:19 | Emergency (ER) | payer MEDICARE, BC ==
[2022-06-11 17:42] VITALS: BP 135/95; PULSE 87
== END 2022-06-11 17:41 | disposition home or self-care (01) ==
LOC: MW.ED 15:19
DX: S90.31XA Contusion of right foot, initial encounter (principal); J44.9 Chronic obstructive pulmonary disease, unspecified; I10 Essential (primary) hypertension; E66.9 Obesity, unspecified; Z68.32 Body mass index [BMI] 32.0-32.9, adult; Z79.899 Other long term (current) drug therapy
CPT/HCPCS: 93971-26-RT; 93971-RT; 99283